=== PATIENT | male | born 1930 | race Two or more races ===

== ENCOUNTER 2017-08-21 13:23 | Inpatient (IN) | payer MEDICARE, MEDICAID ==
[~2017-08-21] VITALS: Ht 175.3 cm; Wt 65.8 kg
[2017-08-21 13:30] VITALS: BP 115/59
--- NOTE | 2017-08-21 13:44 | Emergency Room Report ---
History of Present Illness General Chief Complaint: General Complaint Source: Patient, Medical Record, EMS, PMD (Jm Andino M.D.) Present Illness HPI 87-year-old male, diabetes, CVA with left-sided hemiparesis, hypothyroidism, hypertension, history of atrial fibrillation, only on aspirin, on Plavix, presenting with abnormal labs. Patient is oriented to person only, states that he does not know why that he is here. Primary care doctor at noted that patient was dehydrated, hypernatremia, has not been eating for several days. (Jm Andino M.D.) Allergies: Coded Allergies: No Known Allergies (Unverified , 08/21/17) Patient History Past Medical History: see triage record Past Surgical History: none Pertinent Family History: none Reviewed Nursing Documentation: PMH: Agreed, PSxH: Agreed (Jm Andino M.D. ) Nursing Documentation-PMH Past Medical History: No History, Except For Hx Cardiac Problems: Yes - hypothyroidism, anemia, afib Hx Hypertension: Yes Hx Diabetes: Yes Hx Cerebrovascular Accident: Yes (Jm Andino M.D.) Review of Systems All Other Systems: limited - confused (Jm Andino M.D.) Physical Exam Vital Signs Date Time Temp Pulse Resp B/P (MAP) Pulse Ox O2 Delivery O2 Flow Rate FiO2 08/21/17 13:22 96.8 76 18 115/59 97 Room Air Sp02 EP Interpretation: reviewed, normal General Appearance: other - thin elderly male, confused, appears angry, not in pain, Chronically Ill Head: normocephalic, atraumatic Eyes: bilateral eye normal inspection, bilateral eye PERRL, bilateral eye EOMI ENT: normal ENT inspection, normal pharynx, normal voice, moist mucus membranes Neck: normal inspection, full range of motion, supple Respiratory: normal inspection, lungs clear, normal breath sounds, no respiratory distress, no retraction, no wheezing, speaking full sentences, chest symmetrical Cardiovascular #1: normal inspection, regular rate, rhythm, normal capillary refill Cardiovascular #2: 2+ radial (R), 2+ radial (L) Gastrointestinal: normal inspection, non tender, soft, non-distended, no guarding Musculoskeletal: other - normal passive ROM, L sided hemiparesis Neurologic: other - +L sided hemiparesis Psychiatric: other - dementia Skin: normal inspection, normal color, no rash, warm/dry, well hydrated, normal turgor (Jm Andino M.D.) Medical Decision Making Diagnostic Impression: Primary Impression: Failure to thrive Additional Impressions: Dehydration Hypernatremia Renal failure Elevated troponin I level ER Course 87-year-old male, coming from [facility], dehydrated DDX: Dehydration, electrolyte disturbance, UTI, pneumonia Plan: Obtain labs, ua, EKG, CXR IV fluids ER course: Patient has been monitored during ED stay, HD stable Disposition: Patient is to be admitted to med surg D/W hospitalist Dr Suh Please note that this Emergency Department Report was dictated using [employer] assistant technology software, occasionally this can lead to erroneous entry secondary to interpretation by the dictation equipment. EKG Diagnostic Results EP Interpretation: Yes Rate: normal Rhythm: NSR ST Segments: PVCs, T wave flattening inferior leads ASA given to patient: No Rhythm Strip EP Interpretation: Yes Rate: 75 Rhythm: NSR, no PVCs, no ectopy Chest X-ray CXR: Ordered: Yes 1 view Indication: Altered mental status EP interpretation: Yes Interpretation: No consolidation, no effusion, no PTX, no acute cardiopulmonary disease Impression: No acute disease Electronically signed by Jm Andino MD Laboratory Tests Test 08/21/17 13:27 08/21/17 13:45 White Blood Count 18.2 K/UL (4.8-10.8) H Red Blood Count 5.09 M/UL (4.70-6.10) Hemoglobin 15.7 G/DL (14.2-18.0) Hematocrit 48.0 % (42.0-52.0) Mean Corpuscular Volume 94 FL (80-99) Mean Corpuscular Hemoglobin 30.8 PG (27.0-31.0) Mean Corpuscular Hemoglobin Concent 32.7 G/DL (32.0-36.0) Red Cell Distribution Width 11.0 % (11.6-14.8) L Platelet Count 233 K/UL (150-450) Mean Platelet Volume 6.1 FL (6.5-10.1) L Neutrophils (%) (Auto) % (45.0-75.0) Lymphocytes (%) (Auto) % (20.0-45.0) Monocytes (%) (Auto) % (1.0-10.0) Eosinophils (%) (Auto) % (0.0-3.0) Basophils (%) (Auto) % (0.0-2.0) Differential Total Cells Counted 100 Neutrophils % (Manual) 87 % (45-75) H Lymphocytes % (Manual) 9 % (20-45) L Monocytes % (Manual) 4 % (1-10) Eosinophils % (Manual) 0 % (0-3) Basophils % (Manual) 0 % (0-2) Band Neutrophils 0 % (0-8) Platelet Estimate Adequate Platelet Morphology Normal Prothrombin Time 12.7 SEC (9.30-11.50) H Prothrombin Time INR 1.2 (0.9-1.1) H PTT 27 SEC (23-33) Sodium Level 151 MMOL/L (136-145) H Potassium Level 3.7 MMOL/L (3.5-5.1) Chloride Level 110 MMOL/L (98-107) H Carbon Dioxide Level 33 MMOL/L (21-32) H Anion Gap 8 mmol/L (5-15) Blood Urea Nitrogen 98 mg/dL (7-18) H Creatinine 2.5 MG/DL (0.55-1.30) H Estimate Glomerular Filtration Rate mL/min (>60) Glucose Level 411 MG/DL (74-106) H Lactic Acid Level 2.00 mmol/L (0.66-2.22) Calcium Level 10.0 MG/DL (8.5-10.1) Total Bilirubin 0.8 MG/DL (0.2-1.0) Aspartate Amino Transferase (AST) 39 U/L (15-37) H Alanine Aminotransferase (ALT) 41 U/L (12-78) Alkaline Phosphatase 114 U/L (46-116) Total Creatine Kinase 82 U/L (26-308) Pro-B-Type Natriuretic Peptide 2501 pg/mL (0-125) H Total Protein 8.8 G/DL (6.4-8.2) H Albumin 3.5 G/DL (3.4-5.0) Globulin 5.3 g/dL Albumin/Globulin Ratio 0.7 (1.0-2.7) L Troponin I 0.160 ng/mL (0.000-0.056) (Jm Andino M.D.) ER Course Informed by Rn that patient had trop .16 has renal failure so likely related Per Dr Andino's note, on ASA, Plavix as well Patient was upgraded to tele Dr Garcia was aware (DINESH DE LA ROSA M.D.) Last Vital Signs Date Time Temp Pulse Resp B/P (MAP) Pulse Ox O2 Delivery O2 Flow Rate FiO2 08/21/17 13:22 96.8 76 18 115/59 97 Room Air (Jm Andino M.D.) Status: improved (DINESH DE LA ROSA M.D.) Disposition: ADMITTED INPATIENT Condition: Serious Jm Andino M.D. Aug 21, 2017 13:43 DINESH DE LA ROSA M.D. Aug 21, 2017 16:15
[2017-08-21 14:01] LABS: MEAN CORPUSCULAR HEMOGLOBIN 30.8 PG (27.0-31.0); MEAN CORPUSCULAR HGB CONC 32.7 G/DL (32.0-36.0); MEAN CORPUSCULAR VOLUME 94 FL (80-99); MEAN PLATELET VOLUME 6.1 FL (6.5-10.1); PLATELET COUNT 233 K/UL (150-450); RED BLOOD COUNT 5.09 M/UL (4.70-6.10); WHITE BLOOD COUNT 18.2 K/UL (4.8-10.8)
[2017-08-21 14:12] LABS: ANION GAP 8 mmol/L (5-15); CARBON DIOXIDE 33 MMOL/L (21-32); CHLORIDE 110 MMOL/L (98-107); CREATININE 2.5 MG/DL (0.55-1.30); POTASSIUM 3.7 MMOL/L (3.5-5.1); SODIUM 151 MMOL/L (136-145)
[2017-08-21 14:15] LABS: INR 1.2 (0.9-1.1); PROTHROMBIN TIME 12.7 SEC (9.30-11.50)
[2017-08-21 14:24] LABS: REFLEX LACTIC ACID YES OR NO YES
[2017-08-21 14:28] LABS: ALANINE AMINOTRANSFERASE 41 U/L (12-78); ALBUMIN/GLOBULIN RATIO 0.7 (1.0-2.7); ASPARTATE AMINO TRANSFERASE 39 U/L (15-37); TOTAL PROTEIN 8.8 G/DL (6.4-8.2)
[2017-08-21] MEDS ORDERED: Vancomycin 1.5gm/D5W 250ml 250 ML IVPB ONE (14:30)
[2017-08-21] MEDS ORDERED: Cefepime HCl 2 GM in D5W 55 ML IVPB ONE (14:30)
[2017-08-21 14:46] LABS: BAND NEUTROPHILS % (MANUAL) 0 % (0-8); BASOPHILS % (MANUAL) 0 % (0-2); EOSINOPHILS % (MANUAL) 0 % (0-3); LYMPHOCYTES % (MANUAL) 9 % (20-45); NEUTROPHILS % (MANUAL) 87 % (45-75); PLATELET ESTIMATE ADEQUATE; PLATELET MORPHOLOGY NORMAL; TOTAL CELLS COUNTED 100
[2017-08-21] MEDS ORDERED: Cefepime 2gm ONE (14:51)
--- NOTE | 2017-08-21 14:52 | Consultation ---
Consult Note Consult Note asked to eval for renal failure 87-year-old male, diabetes, CVA with left-sided hemiparesis, hypothyroidism, hypertension, history of atrial fibrillation, only on aspirin, on Plavix, presenting with abnormal labs. Patient is oriented to person only, states that he does not know why that he is here. Primary care doctor at noted that patient was dehydrated, hypernatremia, has not been eating for several days. Past Medical History: No History, Except For Hx Cardiac Problems: Yes - hypothyroidism, anemia, afib Hx Hypertension: Yes Hx Diabetes: Yes Hx Cerebrovascular Accident: Yes examined- data reviewed Assessment/Plan Renal failure- dehydration- Hypernatremia FTT DM CVA with left weakness Low Thyroid HTN PAF PVD Plan: 1/2 SUSANA donnellyey- Urine studies- monitor renal parameters Keep BP and BS in check JOSE NORRIS Aug 21, 2017 14:52
[2017-08-21] MEDS ORDERED: LORazepam Inj 2mg/ml 1ml IV ONE (15:15)
[2017-08-21 16:03] LABS: APPEARANCE,URINE SLIGHTLY CLOUDY; KETONES,URINE NEGATIVE (NEGATIVE); LEUKOCYTE ESTERASE ,URINE 3+ (NEGATIVE); NITRITE,URINE NEGATIVE (NEGATIVE); PH,URINE 6 (4.5-8.0); PROTEIN,URINE 3+ (NEGATIVE); UROBILINOGEN,URINE NORMAL MG/DL (0.0-1.0)
[2017-08-21] MEDS ORDERED: LINZESS145 MCG PO (16:05)
[2017-08-21] MEDS ORDERED: NAMENDA10 MG ORAL (16:05)
[2017-08-21] MEDS ORDERED: ASPIRIN325 MG ORAL (16:05)
[2017-08-21] MEDS ORDERED: TRAMADOL HCL50 MG ORAL (16:05)
[2017-08-21] MEDS ORDERED: PLAVIX75 MG ORAL (16:05)
[2017-08-21] MEDS ORDERED: VITAMIN D1000 UNI1 ORAL (16:05)
[2017-08-21] MEDS ORDERED: ACETAMINOPHEN325 M1 ORAL (16:05)
[2017-08-21] MEDS ORDERED: GALANTAMINE4 MG/1 ML PO (16:05)
[2017-08-21] MEDS ORDERED: FUROSEMIDE40 MG ORAL (16:05)
[2017-08-21] MEDS ORDERED: CRANBERRY450 M3 PO (16:05)
[2017-08-21] MEDS ORDERED: MULTIVITAMINS1 EAC8 ORAL (16:05)
[2017-08-21] MEDS ORDERED: CARVEDILOL12.5 MG ORAL (16:05)
[2017-08-21] MEDS ORDERED: DOCUSATE SODIU100 MG ORAL (16:05)
[2017-08-21] MEDS ORDERED: MELATONIN3 MG ORAL (16:05)
[2017-08-21] MEDS ORDERED: LEVOTHYROXINE50 MCG ORAL (16:05)
[2017-08-21] MEDS ORDERED: CRESTOR10 M2 ORAL (16:05)
[2017-08-21 16:28] LABS: AMORPHOUS SEDIMENT,UR FEW /LPF; BACTERIA,URINE MODERATE /HPF; RBC,URINE 40-60 /HPF (0 - 0); WBC,URINE 30-40 /HPF (0 - 0)
[2017-08-21 16:30] VITALS: BP 106/60
--- NOTE | 2017-08-21 16:36 | Diagnostic Imaging Report ---
Indication: Shortness of breath Technique: One view of the chest Comparison: none Findings: No acute infiltrates, effusions, or congestion. Tortuous calcified aorta. Normal heart size. Upper mediastinum unremarkable. There are cholecystectomy clips. There are degenerative changes of the left shoulder Impression: No acute process.
[2017-08-21 18:00] VITALS: BP 108/62
--- NOTE | 2017-08-21 19:31 | Cardiology Progress Note ---
Assessment/Plan Assessment/Plan The patient is seen and examined, full consult note will be dictated. Objective Last 24 Hour Vital Signs Date Time Temp Pulse Resp B/P (MAP) Pulse Ox O2 Delivery O2 Flow Rate FiO2 08/21/17 18:00 97.7 72 18 108/62 94 Room Air 08/21/17 17:00 96.8 68 18 106/60 100 Room Air 08/21/17 16:30 68 18 106/60 100 Room Air 08/21/17 13:30 96.8 75 21 115/59 98 Room Air 08/21/17 13:22 96.8 76 18 115/59 97 Room Air Intake and Output 08/21/17 08/22/17 19:00 07:00 Intake Total 55 ml Balance 55 ml Intake Oral 0 ml IV Total 55 ml Laboratory Tests Test 08/21/17 13:27 08/21/17 13:45 08/21/17 14:23 08/21/17 15:34 White Blood Count 18.2 K/UL (4.8-10.8) H Red Blood Count 5.09 M/UL (4.70-6.10) Hemoglobin 15.7 G/DL (14.2-18.0) Hematocrit 48.0 % (42.0-52.0) Mean Corpuscular Volume 94 FL (80-99) Mean Corpuscular Hemoglobin 30.8 PG (27.0-31.0) Mean Corpuscular Hemoglobin Concent 32.7 G/DL (32.0-36.0) Red Cell Distribution Width 11.0 % (11.6-14.8) L Platelet Count 233 K/UL (150-450) Mean Platelet Volume 6.1 FL (6.5-10.1) L Neutrophils (%) (Auto) % (45.0-75.0) Lymphocytes (%) (Auto) % (20.0-45.0) Monocytes (%) (Auto) % (1.0-10.0) Eosinophils (%) (Auto) % (0.0-3.0) Basophils (%) (Auto) % (0.0-2.0) Differential Total Cells Counted 100 Neutrophils % (Manual) 87 % (45-75) H Lymphocytes % (Manual) 9 % (20-45) L Monocytes % (Manual) 4 % (1-10) Eosinophils % (Manual) 0 % (0-3) Basophils % (Manual) 0 % (0-2) Band Neutrophils 0 % (0-8) Platelet Estimate Adequate Platelet Morphology Normal Prothrombin Time 12.7 SEC (9.30-11.50) H Prothromb Time International Ratio 1.2 (0.9-1.1) H Activated Partial Thromboplast Time 27 SEC (23-33) Sodium Level 151 MMOL/L (136-145) H Potassium Level 3.7 MMOL/L (3.5-5.1) Chloride Level 110 MMOL/L (98-107) H Carbon Dioxide Level 33 MMOL/L (21-32) H Anion Gap 8 mmol/L (5-15) Blood Urea Nitrogen 98 mg/dL (7-18) H Creatinine 2.5 MG/DL (0.55-1.30) H Estimat Glomerular Filtration Rate mL/min (>60) Glucose Level 411 MG/DL (74-106) H Lactic Acid Level 2.00 mmol/L (0.66-2.22) 2.10 mmol/L (0.66-2.22) Calcium Level 10.0 MG/DL (8.5-10.1) Total Bilirubin 0.8 MG/DL (0.2-1.0) Aspartate Amino Transf (AST/SGOT) 39 U/L (15-37) H Alanine Aminotransferase (ALT/SGPT) 41 U/L (12-78) Alkaline Phosphatase 114 U/L (46-116) Total Creatine Kinase 82 U/L (26-308) Pro-B-Type Natriuretic Peptide 2501 pg/mL (0-125) H Total Protein 8.8 G/DL (6.4-8.2) H Albumin 3.5 G/DL (3.4-5.0) Globulin 5.3 g/dL Albumin/Globulin Ratio 0.7 (1.0-2.7) L Troponin I 0.160 ng/mL (0.000-0.056) Urine Color Pale yellow Urine Appearance Slightly cloudy Urine pH 6 (4.5-8.0) Urine Specific [place] 1.010 (1.005-1.035) Urine Protein 3+ (NEGATIVE) H Urine Glucose (UA) 1+ (NEGATIVE) H Urine Ketones Negative (NEGATIVE) Urine Occult Blood 5+ (NEGATIVE) H Urine Nitrite Negative (NEGATIVE) Urine Bilirubin Negative (NEGATIVE) Urine Urobilinogen Normal MG/DL (0.0-1.0) Urine Leukocyte Esterase 3+ (NEGATIVE) H Urine RBC 40-60 /HPF (0 - 0) H Urine WBC 30-40 /HPF (0 - 0) H Urine Squamous Epithelial Cells None /LPF (NONE/OCC) Urine Amorphous Sediment Few /LPF (NONE) H Urine Bacteria Moderate /HPF (NONE) H REBECCA SANCHEZ Aug 21, 2017 19:31
[2017-08-21 20:16] VITALS: BP 114/59
[2017-08-22 00:45] VITALS: BP 122/60
[2017-08-22 04:23] VITALS: BP 118/65
--- NOTE | 2017-08-22 08:15 | History and Physical Report ---
DATE OF ADMISSION: 08/21/2017 REASON FOR ADMISSION: Dehydration, acute renal failure, failure to thrive, UTI, rule out sepsis. HISTORY OF PRESENT ILLNESS: The patient is very weak. Unable to obtain any history, very poor historian. More confused than his baseline. He is admitted for failure to thrive, , acute renal failure, dehydration, borderline troponin elevation as well as UTI, rule out sepsis. PAST MEDICAL HISTORY: Hypertension, organic brain syndrome, constipation, hypothyroidism, dementia, hyperlipidemia, chronic pain syndrome, and GERD. MEDICATIONS: Levoxyl, Crestor, Ultram, , Colace, Plavix, , aspirin. ALLERGIES: No known allergies. SOCIAL HISTORY: Unable to obtain. . He comes from a correction. FAMILY HISTORY: Unable to obtain. REVIEW OF SYSTEMS: Very poor historian. More altered than usual. Has dementia and cannot obtain any further history from the patient. PHYSICAL EXAMINATION: VITAL SIGNS: Temperature 96.8 degrees, pulse is 75, and blood pressure 116/59. HEENT: PERRLA. NECK: Supple. No lymphadenopathy. CHEST: Clear to auscultation. GASTROINTESTINAL: Soft, nontender, and nondistended. No organomegaly. EXTREMITIES: No edema. Moves all four extremities. Has weight loss. NEUROLOGIC: Reflexes are equal on both sides. Oriented to name only. LABORATORY DATA: Labs showed WBC of 18.2, hemoglobin 15.7, and platelets 233,000. UA shows UTI. Sodium is 151, potassium 3.7, BUN 98, creatinine 3.5, and glucose of 411. Troponin is 8.16. ASSESSMENT AND PLAN: 1. Elevated troponin, could be most likely due to acute renal failure. 2. Hyperlipidemia. 3. Acute renal failure, most likely due to dehydration. The patient is fluids. The patient also has elevated blood sugar and elevated WBC. Rule out sepsis. The patient apparently has a urinary tract infection. 4. I have asked , Dr. Lee, and Dr. Dinora Grimaldo to see the patient for the above-mentioned diagnoses and treatment. Pranav Le M.D. DR: Aileen JOB#: [id number] CC:
[2017-08-22 08:29] VITALS: BP 137/69
[2017-08-22 08:43] LABS: MEAN CORPUSCULAR HEMOGLOBIN 31.3 PG (27.0-31.0); MEAN CORPUSCULAR HGB CONC 33.7 G/DL (32.0-36.0); MEAN CORPUSCULAR VOLUME 93 FL (80-99); MEAN PLATELET VOLUME 6.1 FL (6.5-10.1); PLATELET COUNT 208 K/UL (150-450); RED BLOOD COUNT 4.65 M/UL (4.70-6.10); RED CELL DISTRIBUTION WIDTH 11.1 % (11.6-14.8); WHITE BLOOD COUNT 18.2 K/UL (4.8-10.8)
[2017-08-22 09:35] LABS: ALANINE AMINOTRANSFERASE 32 U/L (12-78); ALBUMIN/GLOBULIN RATIO 0.7 (1.0-2.7); ANION GAP 7 mmol/L (5-15); ASPARTATE AMINO TRANSFERASE 29 U/L (15-37); CALCIUM 9.3 MG/DL (8.5-10.1); CARBON DIOXIDE 33 MMOL/L (21-32); CHLORIDE 113 MMOL/L (98-107); CHOLESTEROL 71 MG/DL (< 200); CHOLESTEROL/HDL RATIO 1.9 (3.3-4.4); MAGNESIUM 2.7 MG/DL (1.8-2.4); PHOSPHORUS 2.7 MG/DL (2.5-4.9); POTASSIUM 3.1 MMOL/L (3.5-5.1); SODIUM 153 MMOL/L (136-145); THYROID STIMULATING HORMONE 1.004 uiU/mL (0.358-3.740); TOTAL PROTEIN 8.1 G/DL (6.4-8.2); URIC ACID 13.1 MG/DL (2.6-7.2)
[2017-08-22 10:29] LABS: HEMOGLOBIN A1C 7.9 % (4.3-6.0)
[2017-08-22 10:37] LABS: BAND NEUTROPHILS % (MANUAL) 0 % (0-8); BASOPHILS % (MANUAL) 0 % (0-2); EOSINOPHILS % (MANUAL) 1 % (0-3); LYMPHOCYTES % (MANUAL) 5 % (20-45); NEUTROPHILS % (MANUAL) 88 % (45-75); PLATELET ESTIMATE ADEQUATE; PLATELET MORPHOLOGY NORMAL; TOTAL CELLS COUNTED 100
[2017-08-22 11:28] LABS: FOLIC ACID 31.2 NG/ML (8.6-58.9)
[2017-08-22 11:38] VITALS: BP 118/61
--- NOTE | 2017-08-22 12:27 | Diagnostic Imaging Report ---
APPROVED REPORT CPT Code: 62929 Present Symptoms Comments: Technically difficult study due to pain BILATERAL: Imaging reveals a patent deep venous system bilaterally. There is no evidence of thrombus within the femoral, popliteal or tibial segments. The greater saphenous veins are also within normal limits. Doppler indicates normal spontaneous flow within these segments.
--- NOTE | 2017-08-22 13:07 | Nephrology Progress Note ---
Assessment/Plan Assessment Renal failure- cr lower dehydration- Hypernatremia FTT DM CVA with left weakness Low Thyroid HTN PAF PVD Plan Plan: /2 NS has condom cath Urine studies- monitor renal parameters Keep BP and BS in check Subjective ROS Limited/Unobtainable: No Constitutional: Reports: malaise, weakness Objective Objective Last 24 Hour Vital Signs Date Time Temp Pulse Resp B/P (MAP) Pulse Ox O2 Delivery O2 Flow Rate FiO2 08/22/17 11:38 97.5 72 20 118/61 95 08/22/17 11:16 78 08/22/17 08:29 97.3 70 20 137/69 96 08/22/17 08:00 74 08/22/17 04:23 96.2 90 18 118/65 94 Room Air 08/22/17 04:00 69 08/22/17 00:45 96.8 74 18 122/60 96 Room Air 08/22/17 00:00 78 08/21/17 20:16 97.1 71 18 114/59 96 Room Air 08/21/17 20:00 75 08/21/17 18:00 97.7 72 18 108/62 94 Room Air 08/21/17 17:00 96.8 68 18 106/60 100 Room Air 08/21/17 16:30 68 18 106/60 100 Room Air 08/21/17 13:30 96.8 75 21 115/59 98 Room Air 08/21/17 13:22 96.8 76 18 115/59 97 Room Air Laboratory Tests 08/21/17 13:27: White Blood Count 18.2H, Red Blood Count 5.09, Hemoglobin 15.7, Hematocrit 48.0 , Mean Corpuscular Volume 94, Mean Corpuscular Hemoglobin 30.8, Mean Corpuscular Hemoglobin Concent 32.7, Red Cell Distribution Width 11.0L, Platelet Count 233, Mean Platelet Volume 6.1L, Neutrophils (%) (Auto) , Lymphocytes (%) (Auto) , Monocytes (%) (Auto) , Eosinophils (%) (Auto) , Basophils (%) (Auto) , Differential Total Cells Counted 100, Neutrophils % ( Manual) 87H, Lymphocytes % (Manual) 9L, Monocytes % (Manual) 4, Eosinophils % ( Manual) 0, Basophils % (Manual) 0, Band Neutrophils 0, Platelet Estimate Adequate, Platelet Morphology Normal, Prothrombin Time 12.7H, Prothromb Time International Ratio 1.2H, Activated Partial Thromboplast Time 27, Sodium Level 151H, Potassium Level 3.7, Chloride Level 110H, Carbon Dioxide Level 33H, Anion Gap 8, Blood Urea Nitrogen 98H, Creatinine 2.5H, Estimat Glomerular Filtration Rate , Glucose Level 411H, Lactic Acid Level 2.00, Calcium Level 10.0, Total Bilirubin 0.8, Aspartate Amino Transf (AST/SGOT) 39H, Alanine Aminotransferase ( ALT/SGPT) 41, Alkaline Phosphatase 114, Total Creatine Kinase 82, Pro-B-Type Natriuretic Peptide 2501H, Total Protein 8.8H, Albumin 3.5, Globulin 5.3, Albumin/Globulin Ratio 0.7L 08/21/17 13:45: Troponin I 0.160H 08/21/17 14:23: Lactic Acid Level 2.10 08/21/17 15:34: Urine Color Pale yellow, Urine Appearance Slightly cloudy, Urine pH 6, Urine Specific [place] 1.010, Urine Protein 3+H, Urine Glucose (UA) 1+H, Urine Ketones Negative, Urine Occult Blood 5+H, Urine Nitrite Negative, Urine Bilirubin Negative, Urine Urobilinogen Normal, Urine Leukocyte Esterase 3+H, Urine RBC 40-60H, Urine WBC 30-40H, Urine Squamous Epithelial Cells None, Urine Amorphous Sediment FewH, Urine Bacteria ModerateH 08/22/17 08:05: White Blood Count 18.2H, Red Blood Count 4.65L, Hemoglobin 14.6, Hematocrit 43.2 , Mean Corpuscular Volume 93, Mean Corpuscular Hemoglobin 31.3H, Mean Corpuscular Hemoglobin Concent 33.7, Red Cell Distribution Width 11.1L, Platelet Count 208, Mean Platelet Volume 6.1L, Neutrophils (%) (Auto) , Lymphocytes (%) (Auto) , Monocytes (%) (Auto) , Eosinophils (%) (Auto) , Basophils (%) (Auto) , Differential Total Cells Counted 100, Neutrophils % ( Manual) 88H, Lymphocytes % (Manual) 5L, Monocytes % (Manual) 6, Eosinophils % ( Manual) 1, Basophils % (Manual) 0, Band Neutrophils 0, Platelet Estimate Adequate, Platelet Morphology Normal, Red Blood Cell Morphology Normal, Sodium Level 153H, Potassium Level 3.1L, Chloride Level 113H, Carbon Dioxide Level 33H , Anion Gap 7, Blood Urea Nitrogen 77H, Creatinine 2.0H, Estimat Glomerular Filtration Rate , Glucose Level 191#H, Hemoglobin A1c 7.9H, Uric Acid 13.1H, Calcium Level 9.3, Phosphorus Level 2.7, Magnesium Level 2.7H, Total Bilirubin 0.9, Gamma Glutamyl Transpeptidase 39, Aspartate Amino Transf (AST/SGOT) 29, Alanine Aminotransferase (ALT/SGPT) 32, Alkaline Phosphatase 105, Total Creatine Kinase 113, Troponin I 0.163H, C-Reactive Protein, Quantitative 10.0H, Pro-B-Type Natriuretic Peptide 3190H, Total Protein 8.1, Albumin 3.2L, Globulin 4.9, Albumin/Globulin Ratio 0.7L, Triglycerides Level 67, Cholesterol Level 71, LDL Cholesterol 28, HDL Cholesterol 37L, Cholesterol/HDL Ratio 1.9L, Vitamin B12 Level 1789H, Folate 31.2, Thyroid Stimulating Hormone (TSH) 1.004 Height (Feet): 5 Height (Inches): 9.00 Weight (Pounds): 145 General Appearance: no apparent distress Cardiovascular: normal rate, arrhythmia Respiratory/Chest: decreased breath sounds Abdomen: soft Objective no change JOSE NORRIS Aug 22, 2017 13:07
--- NOTE | 2017-08-22 14:27 | Cardiology Report ---
APPROVED REPORT EKG Measurement Heart [id number] ND 250P14 [id number] Sinus rhythm with 1st degree AV block with occasional premature ventricular complexes Moderate voltage criteria for LVH, may be normal variant T wave abnormality, consider inferior ischemia Abnormal ECG
[2017-08-22] MEDS ORDERED: cefTRIAXone 1 GM in D5W 55 ML IVPB SCH (15:00)
--- NOTE | 2017-08-22 15:45 | Consultation ---
DATE OF CONSULTATION: 08/22/2017 INFECTIOUS DISEASE CONSULTATION CONSULTING PHYSICIAN: Henry Lemons M.D. PRIMARY ATTENDING PHYSICIAN: Pranav Le M.D. REASON FOR CONSULTATION: UTI. HISTORY OF PRESENT ILLNESS: This is an 87-year-old male, who is a care home resident, admitted yesterday with decreased p.o. intake. It was found the patient had hypernatremia and acute renal failure. The patient also had leukocytosis, pyuria, and hematuria. He is demented and not a source of history. PAST MEDICAL HISTORY: Significant for CVA with left-sided hemiplegia, hypothyroidism, hypertension, dementia, and had history of atrial fibrillation in the past. ALLERGIES: No known drug allergies. MEDICATIONS: Rocephin, promethazine, and sodium chloride. He had a dose of vancomycin and cefepime in the ER. SOCIAL HISTORY: [facility] resident. . Code status is DNR. No history of alcohol, drug abuse, or smoking. REVIEW OF SYSTEMS: Unobtainable. PHYSICAL EXAMINATION: GENERAL APPEARANCE: The patient seems to be thin but is friendly and shakes hand. VITAL SIGNS: Temperature 97.3, pulse 70, blood pressure 137/69, and was afebrile. HEAD AND NECK: [place] conjunctivae. HEART: Normal rate. LUNGS: Clear. ABDOMEN: Soft, nondistended, nontender. EXTREMITIES: No edema. He has bilateral lower extremity muscle atrophy. SKIN: He has pigmented skin lesion in the left chandra. NEUROLOGIC: He is awake, alert, verbal, and cannot move left side of the body. LABORATORY AND DIAGNOSTIC DATA: WBC 18.2, hemoglobin 13.6 . Sodium 151, potassium 3.7, chloride 110, bicarbonate 33, BUN 98, creatinine 2.5. This morning, BUN 77 and creatinine 2. He had elevated troponin 0.163. Chest x-ray showed no acute process. Venous duplex, no DVT. UA showed WBC of 30-40, RBC of 40-60. Urine culture is pending. IMPRESSION: Urinary tract infection. The patient seems to have leukocytosis and pyuria. It seems the patient has acute renal failure, has diabetes mellitus, hypernatremia, hypertension, and dementia. RECOMMENDATION: We will continue with Rocephin. We will follow up with culture. At the end of my exam, I thank Dr. Le for involving me in the care of this patient. Henry Lemons M.D. DR: Manuel JOB#: [id number] CC: S[place]
--- NOTE | 2017-08-22 15:46 | Cardiology Progress Note ---
Assessment/Plan Assessment/Plan The patient is seen and examined, full consult note will be dictated. Objective Last 24 Hour Vital Signs Date Time Temp Pulse Resp B/P (MAP) Pulse Ox O2 Delivery O2 Flow Rate FiO2 08/22/17 15:06 75 08/22/17 11:38 97.5 72 20 118/61 95 08/22/17 11:16 78 08/22/17 08:29 97.3 70 20 137/69 96 08/22/17 08:00 74 08/22/17 04:23 96.2 90 18 118/65 94 Room Air 08/22/17 04:00 69 08/22/17 00:45 96.8 74 18 122/60 96 Room Air 08/22/17 00:00 78 08/21/17 20:16 97.1 71 18 114/59 96 Room Air 08/21/17 20:00 75 08/21/17 18:00 97.7 72 18 108/62 94 Room Air 08/21/17 17:00 96.8 68 18 106/60 100 Room Air 08/21/17 16:30 68 18 106/60 100 Room Air Intake and Output 08/22/17 08/23/17 19:00 07:00 Intake Total 655 ml Balance 655 ml IV Total 655 ml Laboratory Tests Test 08/22/17 08:05 White Blood Count 18.2 K/UL (4.8-10.8) H Red Blood Count 4.65 M/UL (4.70-6.10) L Hemoglobin 14.6 G/DL (14.2-18.0) Hematocrit 43.2 % (42.0-52.0) Mean Corpuscular Volume 93 FL (80-99) Mean Corpuscular Hemoglobin 31.3 PG (27.0-31.0) H Mean Corpuscular Hemoglobin Concent 33.7 G/DL (32.0-36.0) Red Cell Distribution Width 11.1 % (11.6-14.8) L Platelet Count 208 K/UL (150-450) Mean Platelet Volume 6.1 FL (6.5-10.1) L Neutrophils (%) (Auto) % (45.0-75.0) Lymphocytes (%) (Auto) % (20.0-45.0) Monocytes (%) (Auto) % (1.0-10.0) Eosinophils (%) (Auto) % (0.0-3.0) Basophils (%) (Auto) % (0.0-2.0) Differential Total Cells Counted 100 Neutrophils % (Manual) 88 % (45-75) H Lymphocytes % (Manual) 5 % (20-45) L Monocytes % (Manual) 6 % (1-10) Eosinophils % (Manual) 1 % (0-3) Basophils % (Manual) 0 % (0-2) Band Neutrophils 0 % (0-8) Platelet Estimate Adequate Platelet Morphology Normal Red Blood Cell Morphology Normal Sodium Level 153 MMOL/L (136-145) H Potassium Level 3.1 MMOL/L (3.5-5.1) L Chloride Level 113 MMOL/L (98-107) H Carbon Dioxide Level 33 MMOL/L (21-32) H Anion Gap 7 mmol/L (5-15) Blood Urea Nitrogen 77 mg/dL (7-18) H Creatinine 2.0 MG/DL (0.55-1.30) H Estimat Glomerular Filtration Rate mL/min (>60) Glucose Level 191 MG/DL (74-106) #H Hemoglobin A1c 7.9 % (4.3-6.0) H Uric Acid 13.1 MG/DL (2.6-7.2) H Calcium Level 9.3 MG/DL (8.5-10.1) Phosphorus Level 2.7 MG/DL (2.5-4.9) Magnesium Level 2.7 MG/DL (1.8-2.4) H Total Bilirubin 0.9 MG/DL (0.2-1.0) Gamma Glutamyl Transpeptidase 39 U/L (5-85) Aspartate Amino Transf (AST/SGOT) 29 U/L (15-37) Alanine Aminotransferase (ALT/SGPT) 32 U/L (12-78) Alkaline Phosphatase 105 U/L (46-116) Total Creatine Kinase 113 U/L (26-308) Troponin I 0.163 ng/mL (0.000-0.056) C-Reactive Protein, Quantitative 10.0 mg/dL (0.00-0.90) H Pro-B-Type Natriuretic Peptide 3190 pg/mL (0-125) H Total Protein 8.1 G/DL (6.4-8.2) Albumin 3.2 G/DL (3.4-5.0) L Globulin 4.9 g/dL Albumin/Globulin Ratio 0.7 (1.0-2.7) L Triglycerides Level 67 MG/DL (30-150) Cholesterol Level 71 MG/DL (< 200) LDL Cholesterol 28 mg/dL (<100) HDL Cholesterol 37 MG/DL (40-60) L Cholesterol/HDL Ratio 1.9 (3.3-4.4) L Vitamin B12 Level 1789 PG/ML (193-986) H Folate 31.2 NG/ML (8.6-58.9) Thyroid Stimulating Hormone (TSH) 1.004 uiU/mL (0.358-3.740) Microbiology Date/Time Source Procedure Growth Status 08/21/17 15:34 Urine,Clean Catch Urine Culture - Preliminary Resulted REBECCA SANCHEZ Aug 22, 2017 15:46
[2017-08-22 16:02] VITALS: BP 123/50
--- NOTE | 2017-08-22 18:15 | Consultation ---
DATE OF CONSULTATION: 08/21/2017 CARDIOLOGY CONSULTATION REFERRING PHYSICIAN: Pranav Le M.D. REASON FOR CONSULTATION: Management of elevated troponin level. HISTORY OF PRESENT ILLNESS: The patient is a very unfortunate 87-year-old gentleman, who is transferred from nursing facility for abnormal labs. At the time of evaluation by the emergency department physician, the patient was found to be only oriented to person. The patient was found to be dehydrated, serum sodium level was elevated due to the fact that the patient has not been eating for several days. The patient was admitted to telemetry for further evaluation and management. Cardiology consultation was made at the request of Dr. Le for management of atrial fibrillation as well as elevation of troponin I level. The patient is not capable of providing any verbal communication at this time. Review of the record shows that the patient has many risk factors for coronary artery disease including hypertension and diabetes mellitus. The patient also has history of cerebrovascular accident in the past. PAST MEDICAL HISTORY: 1. Diabetes mellitus. 2. Hypertension. 3. Cerebrovascular accident. 4. Hypothyroidism. 5. Anemia. 6. Atrial fibrillation. 7. Failure to thrive. PAST SURGICAL HISTORY: None. MEDICATIONS: List of the medications from [facility] includin. Acetaminophen 650 mg q.6 h. for headache and temperature above 101 degrees. 2. Aspirin 325 mg p.o. daily. 3. Carvedilol 12.5 mg twice daily. 4. Vitamin D 2000 units daily. 5. Plavix 75 mg p.o. daily. 6. Cranberry 450 mg p.o. daily. 7. Colace 100 mg p.o. three times daily. 8. Lasix 40 mg p.o. daily. 9. Galantamine hydrobromide 4 mg p.o. twice daily. 10. Levothyroxine 50 mcg p.o. daily. 11. Linzess 145 mcg p.o. daily. 12. Melatonin 9 mg p.o. nightly. 13. Namenda 10 mg p.o. twice daily. 14. Multivitamin one tablet p.o. daily. 15. Crestor 5 mg p.o. daily. 16. Tramadol 50 mg p.o. q.12 h. p.r.n. pain. ALLERGIES: No known drug allergies. SOCIAL HISTORY: No history of tobacco, alcohol, or illicit drug use. FAMILY HISTORY: No premature coronary artery disease in first-degree relative. REVIEW OF SYSTEMS: A 12-system review cannot be obtained as the patient is not verbally communicating. PHYSICAL EXAMINATION: VITAL SIGNS: Blood pressure was 115/59, pulse of 76, respirations of 18, temperature 96.8 degrees Fahrenheit, and O2 saturation of 97% on room air. GENERAL: The patient is a very unfortunate 87-year-old gentleman, in no apparent respiratory distress, appears to be confused, thin and frail, chronically ill looking. HEENT: Atraumatic and normocephalic. Anicteric. There is bitemporal wasting. Pupils are equal, round, and reactive to light and accommodation. Conjunctival pallor is evident. NECK: JVP less than 5 cm. No carotid bruit. Carotid upstroke is 2+ bilaterally. CVS: Normal S1 and S2. Regular rate and rhythm. No murmurs, gallops, or rubs. PMI is at fourth intercostal space in the midclavicular line. LUNGS: Clear to auscultation bilaterally. ABDOMEN: Soft, nontender, and nondistended. No hepatosplenomegaly. Positive bowel sounds. EXTREMITIES: No evidence of edema, clubbing, or cyanosis. There is left-sided hemiparesis. LABORATORY FINDINGS: WBC is 18.2, hemoglobin of 15.7, hematocrit of 48.0, and platelet count is 233,000. Sodium is 151, potassium is 3.7, chloride 110, carbon dioxide of 33, BUN of 98, creatinine 2.5, glucose is 411, and calcium is 10.0. ProBNP was 2501. Troponin I was 0.16. A 12-lead electrocardiogram shows sinus rhythm with T-wave flattening in inferior leads. Heart rate of 75. ASSESSMENT AND PLAN: The patient is a very unfortunate 87-year-old gentleman, seen in Cardiology consultation at the request of Dr. Le. 1. Slight elevation of troponin I level in this patient could be secondary to his underlying acute renal failure, sepsis, or tachycardia. 2. The patient did not have any complaint of chest pain at the time of arrival to the hospital. We will obtain the serial troponin I levels to figure the pattern of troponin rise. 3. A 12-lead electrocardiogram does not show any evidence of ischemia at this time. In view of the patient's comorbidity, lack of chest pain, conservative therapy would be the mainstay of therapy in this patient. We will obtain fasting lipid panel for coronary artery disease risk stratification. 2D echocardiography will be ordered to assess left ventricular systolic and diastolic function. 4. Paroxysmal atrial fibrillation, currently appears to be in sinus rhythm. Review of the medical record shows that the patient is on combination of aspirin and clopidogrel and not on any anticoagulation therapy. We will discuss with primary to ensure that the patient has shown prior episode of atrial fibrillation. In that case, combination of aspirin and Plavix ideally be altered to aspirin and one of the novel oral anticoagulants. 5. History of cerebrovascular accident. Currently, on aspirin and Plavix for secondary preventive measures. This is an adequate treatment. 6. Acute kidney injury on hydration. 7. History of hypernatremia signifying free water deficit. Nephrology business systems consultant is managing this condition. I would like to thank, Dr. Le, for the courtesy of this consultation. Gio Borges M.D. DR: Morgan JOB#: [id number] CC:
[2017-08-22] MEDS ORDERED: Tubing IV Secondary IV ONE (18:41)
[2017-08-22] MEDS ORDERED: 1/2 NS 1000ml IV ONE (18:41)
--- NOTE | 2017-08-22 18:59 | Cardiology Progress Note ---
Assessment/Plan Assessment/Plan 1. Slight elevation of troponin I level in this patient could be secondary to his underlying acute renal failure, sepsis, or tachycardia. No complains about chest pain, no ischemic features on the ECG, continue conservative therapy. 2. Paroxysmal atrial fibrillation, currently appears to be in sinus rhythm, consider NOAC. 3. Hx of CVA, continue ASA and plavix if NOAC is not considered. Subjective Subjective Sinus rhythm at 74. Not verbally communicating. Objective Last 24 Hour Vital Signs Date Time Temp Pulse Resp B/P (MAP) Pulse Ox O2 Delivery O2 Flow Rate FiO2 08/22/17 16:02 97.7 81 18 123/50 95 08/22/17 15:06 75 08/22/17 11:38 97.5 72 20 118/61 95 08/22/17 11:16 78 08/22/17 08:29 97.3 70 20 137/69 96 08/22/17 08:00 74 08/22/17 04:23 96.2 90 18 118/65 94 Room Air 08/22/17 04:00 69 08/22/17 00:45 96.8 74 18 122/60 96 Room Air 08/22/17 00:00 78 08/21/17 20:16 97.1 71 18 114/59 96 Room Air 08/21/17 20:00 75 Neck: spinous processes tender Intake and Output 08/22/17 08/23/17 19:00 07:00 Intake Total 805 ml Output Total 300 ml Balance 505 ml IV Total 805 ml Output Urine Total 300 ml # Voids 1 Laboratory Tests Test 08/22/17 08:05 White Blood Count 18.2 K/UL (4.8-10.8) H Red Blood Count 4.65 M/UL (4.70-6.10) L Hemoglobin 14.6 G/DL (14.2-18.0) Hematocrit 43.2 % (42.0-52.0) Mean Corpuscular Volume 93 FL (80-99) Mean Corpuscular Hemoglobin 31.3 PG (27.0-31.0) H Mean Corpuscular Hemoglobin Concent 33.7 G/DL (32.0-36.0) Red Cell Distribution Width 11.1 % (11.6-14.8) L Platelet Count 208 K/UL (150-450) Mean Platelet Volume 6.1 FL (6.5-10.1) L Neutrophils (%) (Auto) % (45.0-75.0) Lymphocytes (%) (Auto) % (20.0-45.0) Monocytes (%) (Auto) % (1.0-10.0) Eosinophils (%) (Auto) % (0.0-3.0) Basophils (%) (Auto) % (0.0-2.0) Differential Total Cells Counted 100 Neutrophils % (Manual) 88 % (45-75) H Lymphocytes % (Manual) 5 % (20-45) L Monocytes % (Manual) 6 % (1-10) Eosinophils % (Manual) 1 % (0-3) Basophils % (Manual) 0 % (0-2) Band Neutrophils 0 % (0-8) Platelet Estimate Adequate Platelet Morphology Normal Red Blood Cell Morphology Normal Sodium Level 153 MMOL/L (136-145) H Potassium Level 3.1 MMOL/L (3.5-5.1) L Chloride Level 113 MMOL/L (98-107) H Carbon Dioxide Level 33 MMOL/L (21-32) H Anion Gap 7 mmol/L (5-15) Blood Urea Nitrogen 77 mg/dL (7-18) H Creatinine 2.0 MG/DL (0.55-1.30) H Estimat Glomerular Filtration Rate mL/min (>60) Glucose Level 191 MG/DL (74-106) #H Hemoglobin A1c 7.9 % (4.3-6.0) H Uric Acid 13.1 MG/DL (2.6-7.2) H Calcium Level 9.3 MG/DL (8.5-10.1) Phosphorus Level 2.7 MG/DL (2.5-4.9) Magnesium Level 2.7 MG/DL (1.8-2.4) H Total Bilirubin 0.9 MG/DL (0.2-1.0) Gamma Glutamyl Transpeptidase 39 U/L (5-85) Aspartate Amino Transf (AST/SGOT) 29 U/L (15-37) Alanine Aminotransferase (ALT/SGPT) 32 U/L (12-78) Alkaline Phosphatase 105 U/L (46-116) Total Creatine Kinase 113 U/L (26-308) Troponin I 0.163 ng/mL (0.000-0.056) C-Reactive Protein, Quantitative 10.0 mg/dL (0.00-0.90) H Pro-B-Type Natriuretic Peptide 3190 pg/mL (0-125) H Total Protein 8.1 G/DL (6.4-8.2) Albumin 3.2 G/DL (3.4-5.0) L Globulin 4.9 g/dL Albumin/Globulin Ratio 0.7 (1.0-2.7) L Triglycerides Level 67 MG/DL (30-150) Cholesterol Level 71 MG/DL (< 200) LDL Cholesterol 28 mg/dL (<100) HDL Cholesterol 37 MG/DL (40-60) L Cholesterol/HDL Ratio 1.9 (3.3-4.4) L Vitamin B12 Level 1789 PG/ML (193-986) H Folate 31.2 NG/ML (8.6-58.9) Thyroid Stimulating Hormone (TSH) 1.004 uiU/mL (0.358-3.740) Microbiology Date/Time Source Procedure Growth Status 08/21/17 15:34 Urine,Clean Catch Urine Culture - Preliminary Resulted Objective HEENT: Atraumatic and normocephalic. Anicteric. There is bitemporal wasting. Pupils are equal, round, and reactive to light and accommodation. Conjunctival pallor is evident. NECK: JVP less than 5 cm. No carotid bruit. Carotid upstroke is 2+ bilaterally. CVS: Normal S1 and S2. Regular rate and rhythm. No murmurs, gallops, or rubs. PMI is at fourth intercostal space in the midclavicular line. LUNGS: Clear to auscultation bilaterally. ABDOMEN: Soft, nontender, and nondistended. No hepatosplenomegaly. Positive bowel sounds. EXTREMITIES: No evidence of edema, clubbing, or cyanosis. There is left-sided hemiparesis. REBECCA SANCHEZ Aug 22, 2017 18:59
[2017-08-22 20:03] VITALS: BP 120/57
[2017-08-22] MEDS ORDERED: Tamsulosin 0.4mg cap ORAL SCH (21:00)
--- NOTE | 2017-08-22 21:18 | General Progress Note ---
Assessment/Plan Problem List: (1) Failure to thrive SNOMED: 96794050 (2) Hypernatremia ICD Codes: E87.0 - Hyperosmolality and hypernatremia SNOMED: 83382023 (3) Renal failure ICD Codes: N19 - Unspecified kidney failure SNOMED: 58514443 (4) Dehydration ICD Codes: E86.0 - Dehydration SNOMED: 04634498 (5) Elevated troponin I level ICD Codes: R74.8 - Abnormal levels of other serum enzymes SNOMED: 336962975 Status: progressing Assessment/Plan afebrile arf ftt sepsis and uti abx per id reviewed chart and labs Subjective ROS Limited/Unobtainable: Yes Allergies: Coded Allergies: No Known Allergies (Unverified , 08/21/17) Objective Last 24 Hour Vital Signs Date Time Temp Pulse Resp B/P (MAP) Pulse Ox O2 Delivery O2 Flow Rate FiO2 08/22/17 20:03 97.7 73 18 120/57 97 Room Air 08/22/17 16:02 97.7 81 18 123/50 95 08/22/17 15:06 75 08/22/17 11:38 97.5 72 20 118/61 95 08/22/17 11:16 78 08/22/17 08:29 97.3 70 20 137/69 96 08/22/17 08:00 74 08/22/17 04:23 96.2 90 18 118/65 94 Room Air 08/22/17 04:00 69 08/22/17 00:45 96.8 74 18 122/60 96 Room Air 08/22/17 00:00 78 Intake and Output 08/22/17 08/23/17 19:00 07:00 Intake Total 880 ml Output Total 300 ml Balance 580 ml IV Total 880 ml Output Urine Total 300 ml # Voids 1 Laboratory Tests 08/22/17 08:05: White Blood Count 18.2H, Red Blood Count 4.65L, Hemoglobin 14.6, Hematocrit 43.2 , Mean Corpuscular Volume 93, Mean Corpuscular Hemoglobin 31.3H, Mean Corpuscular Hemoglobin Concent 33.7, Red Cell Distribution Width 11.1L, Platelet Count 208, Mean Platelet Volume 6.1L, Neutrophils (%) (Auto) , Lymphocytes (%) (Auto) , Monocytes (%) (Auto) , Eosinophils (%) (Auto) , Basophils (%) (Auto) , Differential Total Cells Counted 100, Neutrophils % ( Manual) 88H, Lymphocytes % (Manual) 5L, Monocytes % (Manual) 6, Eosinophils % ( Manual) 1, Basophils % (Manual) 0, Band Neutrophils 0, Platelet Estimate Adequate, Platelet Morphology Normal, Red Blood Cell Morphology Normal, Sodium Level 153H, Potassium Level 3.1L, Chloride Level 113H, Carbon Dioxide Level 33H , Anion Gap 7, Blood Urea Nitrogen 77H, Creatinine 2.0H, Estimat Glomerular Filtration Rate , Glucose Level 191#H, Hemoglobin A1c 7.9H, Uric Acid 13.1H, Calcium Level 9.3, Phosphorus Level 2.7, Magnesium Level 2.7H, Total Bilirubin 0.9, Gamma Glutamyl Transpeptidase 39, Aspartate Amino Transf (AST/SGOT) 29, Alanine Aminotransferase (ALT/SGPT) 32, Alkaline Phosphatase 105, Total Creatine Kinase 113, Troponin I 0.163H, C-Reactive Protein, Quantitative 10.0H, Pro-B-Type Natriuretic Peptide 3190H, Total Protein 8.1, Albumin 3.2L, Globulin 4.9, Albumin/Globulin Ratio 0.7L, Triglycerides Level 67, Cholesterol Level 71, LDL Cholesterol 28, HDL Cholesterol 37L, Cholesterol/HDL Ratio 1.9L, Vitamin B12 Level 1789H, Folate 31.2, Thyroid Stimulating Hormone (TSH) 1.004 Height (Feet): 5 Height (Inches): 9.00 Weight (Pounds): 145 EENT: PERRL/EOMI Respiratory/Chest: lungs clear Pranav Le MD Aug 22, 2017 21:18
--- NOTE | 2017-08-22 23:30 | Consultation ---
DATE OF CONSULTATION: 08/22/2017 HEMATOLOGY/ONCOLOGY CONSULTATION CONSULTING PHYSICIAN: Tawanda Arrington M.D. REQUESTING PHYSICIAN: Pranav Le M.D. REASON FOR CONSULTATION: Evaluation of leukocytosis. IDENTIFICATION DATA: Dear Dr. Le, The patient is a pleasant 87-year-old male with a past medical history which is significant for organic brain syndrome, constipation, hypothyroidism, dementia, hyperlipidemia, chronic pain syndrome, and GERD, at this time presented to the hospital with failure to thrive, admitted for FLOR, dehydration, as well as potentially elevated troponin, has been seen by Cardiology service as well as Nephrology at this time. The patient noted to have hypernatremia, noted to have leukocytosis, therefore, Hematology Service was consulted for evaluation and treatment. PAST MEDICAL HISTORY: Hypertension, GERD, organic brain syndrome, hyperlipidemia, dementia, and hypothyroidism. MEDICATIONS: Crestor, Ultram, . ALLERGIES: No known drug allergies. SOCIAL HISTORY: Difficult to obtain, the patient comes from custodial. FAMILY HISTORY: Difficult to obtain. REVIEW OF SYSTEMS: The patient is a poor historian.SKIN: No rashes, bumps, or itching. HEENT: No headache, hearing or vision changes. BREASTS: No lumps, pain, or discharge. PULMONARY: No cough, sputum, or shortness of breath. GASTROINTESTINAL: No nausea, vomiting, or diarrhea. GENITOURINARY: No dysuria, frequency, or urgency. MUSCULOSKELETAL: No joint swelling, muscle pain, or trauma. PHYSICAL EXAMINATION: GENERAL: No distress. VITAL SIGNS: Reviewed. PULMONARY: Decreased breath sounds. CARDIOVASCULAR: Regular rate. No S3 or S4. ABDOMEN: Soft, nontender, and nondistended. EXTREMITIES: Has 1+ edema. LABORATORY DATA: WBC of 18,000, hemoglobin 15.7, hematocrit 46, and platelet count . BUN of 98 and creatinine 3.5. ASSESSMENT AND RECOMMENDATIONS: 1. Leukocytosis secondary to underlying infection. Continue to closely monitor versus reactive process. 2. Acute kidney injury likely secondary to dehydration. 3. Hypernatremia secondary to dehydration. 4. Failure to thrive. Continue to closely monitor, potentially secondary to decreased fluid intake. Gastrointestinal evaluation as needed. 5. Benign prostatic hypertrophy. At this time, continue tamsulosin. Tawanda Arrington M.D. DR: CASSY JOB#: [id number] CC:
[2017-08-23 00:03] VITALS: BP 126/62
[2017-08-23 04:00] VITALS: BP 125/58
[2017-08-23 08:04] VITALS: BP 125/76
[2017-08-23 08:58] LABS: BASOPHILS % (AUTO) 0.2 % (0.0-2.0); EOSINOPHILS % (AUTO) 1.6 % (0.0-3.0); LYMPHOCYTES % (AUTO) 12.1 % (20.0-45.0); MEAN CORPUSCULAR HEMOGLOBIN 31.5 PG (27.0-31.0); MEAN CORPUSCULAR HGB CONC 33.5 G/DL (32.0-36.0); MEAN CORPUSCULAR VOLUME 94 FL (80-99); MEAN PLATELET VOLUME 6.3 FL (6.5-10.1); MONOCYTES % (AUTO) 4.3 % (1.0-10.0); NEUTROPHILS % (AUTO) 81.8 % (45.0-75.0); PLATELET COUNT 199 K/UL (150-450); RED BLOOD COUNT 4.13 M/UL (4.70-6.10); RED CELL DISTRIBUTION WIDTH 11.3 % (11.6-14.8); WHITE BLOOD COUNT 13.2 K/UL (4.8-10.8)
[2017-08-23] MEDS ORDERED: KCl 10% 40mEq/30ml liquid NG SCH (09:00)
[2017-08-23 09:22] LABS: ALANINE AMINOTRANSFERASE 32 U/L (12-78); ALBUMIN/GLOBULIN RATIO 0.6 (1.0-2.7); ANION GAP 7 mmol/L (5-15); ASPARTATE AMINO TRANSFERASE 30 U/L (15-37); CALCIUM 8.6 MG/DL (8.5-10.1); CARBON DIOXIDE 28 MMOL/L (21-32); CHLORIDE 116 MMOL/L (98-107); CREATININE 1.7 MG/DL (0.55-1.30); CRP QUANT 8.2 mg/dL (0.00-0.90); MAGNESIUM 2.4 MG/DL (1.8-2.4); PHOSPHORUS 2.5 MG/DL (2.5-4.9); POTASSIUM 3.7 MMOL/L (3.5-5.1); SODIUM 151 MMOL/L (136-145); TOTAL PROTEIN 7.2 G/DL (6.4-8.2)
--- NOTE | 2017-08-23 09:29 | Nephrology Progress Note ---
Assessment/Plan Problem List: (1) Renal failure (2) Failure to thrive (3) Hypernatremia (4) Dehydration Assessment Renal failure- cr lower dehydration- Hypernatremia FTT DM CVA with left weakness Low Thyroid HTN PAF PVD Plan Plan: todays labs pending- 1/2 NS has condom cath Urine studies- monitor renal parameters Keep BP and BS in check med surg. Subjective ROS Limited/Unobtainable: No Objective Objective Last 24 Hour Vital Signs Date Time Temp Pulse Resp B/P (MAP) Pulse Ox O2 Delivery O2 Flow Rate FiO2 08/23/17 08:04 97.3 75 20 125/76 95 08/23/17 04:00 97.7 74 20 125/58 97 Room Air 08/23/17 04:00 69 08/23/17 00:03 97.7 84 20 126/62 96 Room Air 08/23/17 00:00 66 08/22/17 20:03 97.7 73 18 120/57 97 Room Air 08/22/17 20:00 73 08/22/17 16:02 97.7 81 18 123/50 95 08/22/17 15:06 75 08/22/17 11:38 97.5 72 20 118/61 95 08/22/17 11:16 78 Intake and Output 08/23/17 08/24/17 19:00 07:00 # Voids 1 Laboratory Tests 08/23/17 08:45: White Blood Count 13.2H, Red Blood Count 4.13L, Hemoglobin 13.0L, Hematocrit 38.8L, Mean Corpuscular Volume 94, Mean Corpuscular Hemoglobin 31.5H, Mean Corpuscular Hemoglobin Concent 33.5, Red Cell Distribution Width 11.3L, Platelet Count 199, Mean Platelet Volume 6.3L, Neutrophils (%) (Auto) 81.8H, Lymphocytes (%) (Auto) 12.1L, Monocytes (%) (Auto) 4.3, Eosinophils (%) (Auto) 1.6, Basophils (%) (Auto) 0.2, Sodium Level [Pending], Potassium Level [Pending] , Chloride Level [Pending], Carbon Dioxide Level [Pending], Blood Urea Nitrogen [Pending], Creatinine [Pending], Estimat Glomerular Filtration Rate [Pending], Glucose Level [Pending], Uric Acid [Pending], Calcium Level [Pending], Phosphorus Level [Pending], Magnesium Level [Pending], Total Bilirubin [Pending] , Aspartate Amino Transf (AST/SGOT) [Pending], Alanine Aminotransferase (ALT/ SGPT) [Pending], Alkaline Phosphatase [Pending], C-Reactive Protein, Quantitative [Pending], Pro-B-Type Natriuretic Peptide [Pending], Total Protein [Pending], Albumin [Pending], Globulin [Pending] Height (Feet): 5 Height (Inches): 9.00 Weight (Pounds): 145 General Appearance: no apparent distress Objective no change JOSE NORRIS Aug 23, 2017 09:29
[2017-08-23] MEDS ORDERED: Allopurinol 100mg Tab ORAL SCH (10:30)
--- NOTE | 2017-08-23 11:06 | Infectious Diseases Prog Note ---
Assessment/Plan Assessment/Plan A UTi Leukocytosis improving DM Dementia Acute renal failure Hypernatremia P; Continue Rocephin Will f/u UC Subjective ROS Limited/Unobtainable: Yes Allergies: Coded Allergies: No Known Allergies (Unverified , 08/21/17) Objective Vital Signs Last 24 Hour Vital Signs Date Time Temp Pulse Resp B/P (MAP) Pulse Ox O2 Delivery O2 Flow Rate FiO2 08/23/17 08:04 97.3 75 20 125/76 95 08/23/17 04:00 97.7 74 20 125/58 97 Room Air 08/23/17 04:00 69 08/23/17 00:03 97.7 84 20 126/62 96 Room Air 08/23/17 00:00 66 08/22/17 20:03 97.7 73 18 120/57 97 Room Air 08/22/17 20:00 73 08/22/17 16:02 97.7 81 18 123/50 95 08/22/17 15:06 75 08/22/17 11:38 97.5 72 20 118/61 95 08/22/17 11:16 78 Height (Feet): 5 Height (Inches): 9.00 Weight (Pounds): 145 General Appearance: no acute distress HEENT: mucous membranes moist Respiratory/Chest: lungs clear Cardiovascular: normal rate Abdomen: soft, non tender Extremities: no edema Neurologic/Psychiatric: alert, disoriented Microbiology Date/Time Source Procedure Growth Status 08/21/17 14:25 Blood Blood Culture - Preliminary NO GROWTH AFTER 24 HOURS Resulted 08/21/17 14:20 Blood Blood Culture - Preliminary NO GROWTH AFTER 24 HOURS Resulted 08/21/17 17:47 Nasal Nares MRSA Culture - Final NO METHICILLIN RESISTANT STAPH AUREUS... Complete 08/21/17 15:34 Urine,Clean Catch Urine Culture - Preliminary Gram Negative Bacillus 1 Resulted 08/21/17 17:47 Rectum VRE Culture - Final NO VANCOMYCIN RESISTANT ENTEROCOCCUS ... Complete Laboratory Tests Test 08/23/17 08:45 White Blood Count 13.2 K/UL (4.8-10.8) H Red Blood Count 4.13 M/UL (4.70-6.10) L Hemoglobin 13.0 G/DL (14.2-18.0) L Hematocrit 38.8 % (42.0-52.0) L Mean Corpuscular Volume 94 FL (80-99) Mean Corpuscular Hemoglobin 31.5 PG (27.0-31.0) H Mean Corpuscular Hemoglobin Concent 33.5 G/DL (32.0-36.0) Red Cell Distribution Width 11.3 % (11.6-14.8) L Platelet Count 199 K/UL (150-450) Mean Platelet Volume 6.3 FL (6.5-10.1) L Neutrophils (%) (Auto) 81.8 % (45.0-75.0) H Lymphocytes (%) (Auto) 12.1 % (20.0-45.0) L Monocytes (%) (Auto) 4.3 % (1.0-10.0) Eosinophils (%) (Auto) 1.6 % (0.0-3.0) Basophils (%) (Auto) 0.2 % (0.0-2.0) Sodium Level 151 MMOL/L (136-145) H Potassium Level 3.7 MMOL/L (3.5-5.1) Chloride Level 116 MMOL/L (98-107) H Carbon Dioxide Level 28 MMOL/L (21-32) Anion Gap 7 mmol/L (5-15) Blood Urea Nitrogen 50 mg/dL (7-18) H Creatinine 1.7 MG/DL (0.55-1.30) H Estimat Glomerular Filtration Rate mL/min (>60) Glucose Level 142 MG/DL (74-106) H Uric Acid 11.0 MG/DL (2.6-7.2) H Calcium Level 8.6 MG/DL (8.5-10.1) Phosphorus Level 2.5 MG/DL (2.5-4.9) Magnesium Level 2.4 MG/DL (1.8-2.4) Total Bilirubin 0.7 MG/DL (0.2-1.0) Aspartate Amino Transf (AST/SGOT) 30 U/L (15-37) Alanine Aminotransferase (ALT/SGPT) 32 U/L (12-78) Alkaline Phosphatase 94 U/L (46-116) C-Reactive Protein, Quantitative 8.2 mg/dL (0.00-0.90) H Pro-B-Type Natriuretic Peptide 3718 pg/mL (0-125) H Total Protein 7.2 G/DL (6.4-8.2) Albumin 2.7 G/DL (3.4-5.0) L Globulin 4.5 g/dL Albumin/Globulin Ratio 0.6 (1.0-2.7) L Current Medications Medications (Trade) Dose Ordered Sig/Roberth Route PRN Reason Start Time Stop Time Status Last Admin Dose Admin Allopurinol (Zyloprim) 200 mg DAILY ORAL 08/23/17 10:30 09/22/17 10:29 08/23/17 10:50 Ceftriaxone Sodium 1 gm/ Dextrose 55 ml @ 110 mls/hr Q24H IVPB 08/22/17 15:00 08/29/17 14:59 08/22/17 14:03 Dextrose 1,000 ml @ 75 mls/hr [id number] IV 08/23/17 10:30 09/22/17 10:29 08/23/17 10:49 Pantoprazole (Protonix) 40 mg DAILY ORAL 08/23/17 10:30 09/22/17 10:29 08/23/17 10:50 Potassium Chloride (KCl 10% 40mEq Oral solution) 40 meq DAILY ORAL 08/24/17 09:00 09/23/17 08:59 Tamsulosin HCl (Flomax) 0.4 mg BEDTIME ORAL 08/22/17 21:00 09/21/17 20:59 08/22/17 20:36 SHERIN TRUONG Aug 23, 2017 11:06
[2017-08-23 11:45] VITALS: BP 132/58
--- NOTE | 2017-08-23 12:31 | General Progress Note ---
Assessment/Plan Problem List: (1) Failure to thrive SNOMED: 68857824 (2) Hypernatremia ICD Codes: E87.0 - Hyperosmolality and hypernatremia SNOMED: 28612833 (3) Renal failure ICD Codes: N19 - Unspecified kidney failure SNOMED: 61466722 (4) Dehydration ICD Codes: E86.0 - Dehydration SNOMED: 97114277 (5) Elevated troponin I level ICD Codes: R74.8 - Abnormal levels of other serum enzymes SNOMED: 044776322 Status: progressing Assessment/Plan afebrile arf ftt sepsis and uti abx per id dehydration is improving azotemia improving clinically improving Subjective ROS Limited/Unobtainable: Yes Allergies: Coded Allergies: No Known Allergies (Unverified , 08/21/17) Objective Last 24 Hour Vital Signs Date Time Temp Pulse Resp B/P (MAP) Pulse Ox O2 Delivery O2 Flow Rate FiO2 08/23/17 11:45 97.0 65 20 132/58 96 08/23/17 08:04 97.3 75 20 125/76 95 08/23/17 04:00 97.7 74 20 125/58 97 Room Air 08/23/17 04:00 69 08/23/17 00:03 97.7 84 20 126/62 96 Room Air 08/23/17 00:00 66 08/22/17 20:03 97.7 73 18 120/57 97 Room Air 08/22/17 20:00 73 08/22/17 16:02 97.7 81 18 123/50 95 08/22/17 15:06 75 Intake and Output 08/23/17 08/24/17 19:00 07:00 # Voids 1 Laboratory Tests 08/23/17 08:45: White Blood Count 13.2H, Red Blood Count 4.13L, Hemoglobin 13.0L, Hematocrit 38.8L, Mean Corpuscular Volume 94, Mean Corpuscular Hemoglobin 31.5H, Mean Corpuscular Hemoglobin Concent 33.5, Red Cell Distribution Width 11.3L, Platelet Count 199, Mean Platelet Volume 6.3L, Neutrophils (%) (Auto) 81.8H, Lymphocytes (%) (Auto) 12.1L, Monocytes (%) (Auto) 4.3, Eosinophils (%) (Auto) 1.6, Basophils (%) (Auto) 0.2, Sodium Level 151H, Potassium Level 3.7, Chloride Level 116H, Carbon Dioxide Level 28, Anion Gap 7, Blood Urea Nitrogen 50H, Creatinine 1.7H, Estimat Glomerular Filtration Rate , Glucose Level 142H, Uric Acid 11.0H, Calcium Level 8.6, Phosphorus Level 2.5, Magnesium Level 2.4, Total Bilirubin 0.7, Aspartate Amino Transf (AST/SGOT) 30, Alanine Aminotransferase ( ALT/SGPT) 32, Alkaline Phosphatase 94, C-Reactive Protein, Quantitative 8.2H, Pro-B-Type Natriuretic Peptide 3718H, Total Protein 7.2, Albumin 2.7L, Globulin 4.5, Albumin/Globulin Ratio 0.6L Height (Feet): 5 Height (Inches): 9.00 Weight (Pounds): 145 Cardiovascular: normal rate Respiratory/Chest: lungs clear Abdomen: soft Pranav Le MD Aug 23, 2017 12:31
--- NOTE | 2017-08-23 14:56 | Cardiology Report ---
APPROVED REPORT EXAM: Two-dimensional and M-mode echocardiogram with Doppler and color Doppler. INDICATION Acute myocardial infarction Other Information Technically limited study due to poor acoustic windows Technically difficult study due to poor parasternal acoustical windows. Study quality precludes accurate assessment of regional wall motion. M-mode measurements of left ventricle not obtainable due to cardiac position (angle) Normal left ventricular chamber size. Global left ventricular hypokinesis. Left ventricular ejection fraction estimated to be 40-45 %. No evidence of left ventricular hypertrophy. No evidence of pericardial effusion. All other cardiac chamber sizes are within normal limits. Mild focal aortic valve sclerosis with adequate cusp excursion. Mildly thickened mitral valve leaflets with normal excursion. Mild mitral annulus and aortic root calcification. Pulmonic valve not visualized. Normal tricuspid valve structure. Subcostal views not obtainable. A color flow and spectral Doppler study was performed and revealed: Trace aortic regurgitation. No mitral regurgitation. Mitral inflow velocities indicates possible pseudo normalization pattern implying moderately elevated left atrial pressure (Grade II ). No tricuspid regurgitation.
[2017-08-23] MEDS ORDERED: cefTRIAXone 1 GM in D5W 55 ML IVPB SCH (15:00)
--- NOTE | 2017-08-23 15:28 | General Progress Note ---
Assessment/Plan Assessment/Plan ASSESSMENT AND RECOMMENDATIONS: #. Anemia, currently mild. Workup further if continues to drop. #. Leukocytosis secondary to underlying infection. ID following, on antibiotics. #. Acute kidney injury likely secondary to dehydration. #. Hypernatremia secondary to dehydration. #. Benign prostatic hypertrophy. At this time, continue tamsulosin. Subjective Allergies: Coded Allergies: No Known Allergies (Unverified , 08/21/17) All Systems: reviewed and negative except above Subjective NAD Objective Last 24 Hour Vital Signs Date Time Temp Pulse Resp B/P (MAP) Pulse Ox O2 Delivery O2 Flow Rate FiO2 08/23/17 11:45 97.0 65 20 132/58 96 08/23/17 08:04 97.3 75 20 125/76 95 08/23/17 04:00 97.7 74 20 125/58 97 Room Air 08/23/17 04:00 69 08/23/17 00:03 97.7 84 20 126/62 96 Room Air 08/23/17 00:00 66 08/22/17 20:03 97.7 73 18 120/57 97 Room Air 08/22/17 20:00 73 08/22/17 16:02 97.7 81 18 123/50 95 Intake and Output 08/23/17 08/24/17 19:00 07:00 Intake Total 75 ml Balance 75 ml IV Total 75 ml # Voids 2 Laboratory Tests 08/23/17 08:45: White Blood Count 13.2H, Red Blood Count 4.13L, Hemoglobin 13.0L, Hematocrit 38.8L, Mean Corpuscular Volume 94, Mean Corpuscular Hemoglobin 31.5H, Mean Corpuscular Hemoglobin Concent 33.5, Red Cell Distribution Width 11.3L, Platelet Count 199, Mean Platelet Volume 6.3L, Neutrophils (%) (Auto) 81.8H, Lymphocytes (%) (Auto) 12.1L, Monocytes (%) (Auto) 4.3, Eosinophils (%) (Auto) 1.6, Basophils (%) (Auto) 0.2, Sodium Level 151H, Potassium Level 3.7, Chloride Level 116H, Carbon Dioxide Level 28, Anion Gap 7, Blood Urea Nitrogen 50H, Creatinine 1.7H, Estimat Glomerular Filtration Rate , Glucose Level 142H, Uric Acid 11.0H, Calcium Level 8.6, Phosphorus Level 2.5, Magnesium Level 2.4, Total Bilirubin 0.7, Aspartate Amino Transf (AST/SGOT) 30, Alanine Aminotransferase ( ALT/SGPT) 32, Alkaline Phosphatase 94, C-Reactive Protein, Quantitative 8.2H, Pro-B-Type Natriuretic Peptide 3718H, Total Protein 7.2, Albumin 2.7L, Globulin 4.5, Albumin/Globulin Ratio 0.6L Height (Feet): 5 Height (Inches): 9.00 Weight (Pounds): 145 General Appearance: no apparent distress, lethargic EENT: normal ENT inspection Neck: normal alignment Cardiovascular: normal peripheral pulses Respiratory/Chest: chest wall non-tender Skin: warm/dry Tawanda Arrington Aug 23, 2017 15:28
[2017-08-23 16:15] VITALS: BP 125/60
[2017-08-23] MEDS ORDERED: 1/2 NS 1000ml IV ONE (16:34)
[2017-08-23 19:33] VITALS: BP 125/64
[2017-08-23] MEDS: Tamsulosin 0.4mg cap ORAL SCH (20:48)
--- NOTE | 2017-08-23 23:40 | Cardiology Progress Note ---
Assessment/Plan Assessment/Plan 1. Slight elevation of troponin I level in this patient could be secondary to his underlying acute renal failure, sepsis, or tachycardia. No complains about chest pain, no ischemic features on the ECG, continue conservative therapy. Echo reveals LVEF ~45%. 2. Paroxysmal atrial fibrillation, currently appears to be in sinus rhythm, consider NOAC. 3. Hx of CVA, continue ASA and plavix if NOAC is not considered. Subjective Subjective Transferred to the med-surg unit. Not verbally communicating. Objective Last 24 Hour Vital Signs Date Time Temp Pulse Resp B/P (MAP) Pulse Ox O2 Delivery O2 Flow Rate FiO2 08/23/17 19:33 97.0 64 19 125/64 96 Room Air 08/23/17 16:15 97.3 68 19 125/60 97 Room Air 08/23/17 11:45 97.0 65 20 132/58 96 08/23/17 08:04 97.3 75 20 125/76 95 08/23/17 04:00 97.7 74 20 125/58 97 Room Air 08/23/17 04:00 69 08/23/17 00:03 97.7 84 20 126/62 96 Room Air 08/23/17 00:00 66 Intake and Output 08/23/17 08/24/17 19:00 07:00 Intake Total 455 ml Balance 455 ml Intake Oral 120 ml IV Total 335 ml # Voids 2 2D Echo: LVEF ~45%, global LV hypokinesia, Grade II LVDD/Pseudo-normal LV physio. Laboratory Tests Test 08/23/17 08:45 White Blood Count 13.2 K/UL (4.8-10.8) H Red Blood Count 4.13 M/UL (4.70-6.10) L Hemoglobin 13.0 G/DL (14.2-18.0) L Hematocrit 38.8 % (42.0-52.0) L Mean Corpuscular Volume 94 FL (80-99) Mean Corpuscular Hemoglobin 31.5 PG (27.0-31.0) H Mean Corpuscular Hemoglobin Concent 33.5 G/DL (32.0-36.0) Red Cell Distribution Width 11.3 % (11.6-14.8) L Platelet Count 199 K/UL (150-450) Mean Platelet Volume 6.3 FL (6.5-10.1) L Neutrophils (%) (Auto) 81.8 % (45.0-75.0) H Lymphocytes (%) (Auto) 12.1 % (20.0-45.0) L Monocytes (%) (Auto) 4.3 % (1.0-10.0) Eosinophils (%) (Auto) 1.6 % (0.0-3.0) Basophils (%) (Auto) 0.2 % (0.0-2.0) Sodium Level 151 MMOL/L (136-145) H Potassium Level 3.7 MMOL/L (3.5-5.1) Chloride Level 116 MMOL/L (98-107) H Carbon Dioxide Level 28 MMOL/L (21-32) Anion Gap 7 mmol/L (5-15) Blood Urea Nitrogen 50 mg/dL (7-18) H Creatinine 1.7 MG/DL (0.55-1.30) H Estimat Glomerular Filtration Rate mL/min (>60) Glucose Level 142 MG/DL (74-106) H Uric Acid 11.0 MG/DL (2.6-7.2) H Calcium Level 8.6 MG/DL (8.5-10.1) Phosphorus Level 2.5 MG/DL (2.5-4.9) Magnesium Level 2.4 MG/DL (1.8-2.4) Total Bilirubin 0.7 MG/DL (0.2-1.0) Aspartate Amino Transf (AST/SGOT) 30 U/L (15-37) Alanine Aminotransferase (ALT/SGPT) 32 U/L (12-78) Alkaline Phosphatase 94 U/L (46-116) C-Reactive Protein, Quantitative 8.2 mg/dL (0.00-0.90) H Pro-B-Type Natriuretic Peptide 3718 pg/mL (0-125) H Total Protein 7.2 G/DL (6.4-8.2) Albumin 2.7 G/DL (3.4-5.0) L Globulin 4.5 g/dL Albumin/Globulin Ratio 0.6 (1.0-2.7) L Microbiology Date/Time Source Procedure Growth Status 08/21/17 14:25 Blood Blood Culture - Preliminary NO GROWTH AFTER 24 HOURS Resulted 08/21/17 14:20 Blood Blood Culture - Preliminary NO GROWTH AFTER 24 HOURS Resulted 08/21/17 17:47 Nasal Nares MRSA Culture - Final NO METHICILLIN RESISTANT STAPH AUREUS... Complete 08/21/17 15:34 Urine,Clean Catch Urine Culture - Preliminary Gram Negative Bacillus 1 Resulted 08/21/17 17:47 Rectum VRE Culture - Final NO VANCOMYCIN RESISTANT ENTEROCOCCUS ... Complete Objective HEENT: Atraumatic and normocephalic. Anicteric. There is bitemporal wasting. Pupils are equal, round, and reactive to light and accommodation. Conjunctival pallor is evident. NECK: JVP less than 5 cm. No carotid bruit. Carotid upstroke is 2+ bilaterally. CVS: Normal S1 and S2. Regular rate and rhythm. No murmurs, gallops, or rubs. PMI is at fourth intercostal space in the midclavicular line. LUNGS: Clear to auscultation bilaterally. ABDOMEN: Soft, nontender, and nondistended. No hepatosplenomegaly. Positive bowel sounds. EXTREMITIES: No evidence of edema, clubbing, or cyanosis. There is left-sided hemiparesis. REBECCA SANCHEZ Aug 23, 2017 23:40
[2017-08-24] VITALS (7 sets, daily range): BP systolic 120–143; BP diastolic 65–71
[2017-08-24] MEDS ORDERED: KCl 10% 40mEq/30ml liquid ORAL SCH (09:00)
[2017-08-24] MEDS: Allopurinol 100mg Tab ORAL SCH (09:42)
[2017-08-24] MEDS: KCl 10% 40mEq/30ml liquid ORAL SCH (09:43)
[2017-08-24 10:56] LABS: BASOPHILS % (AUTO) 0.3 % (0.0-2.0); EOSINOPHILS % (AUTO) 2.6 % (0.0-3.0); LYMPHOCYTES % (AUTO) 18.6 % (20.0-45.0); MEAN CORPUSCULAR HEMOGLOBIN 31.6 PG (27.0-31.0); MEAN CORPUSCULAR HGB CONC 33.6 G/DL (32.0-36.0); MEAN CORPUSCULAR VOLUME 94 FL (80-99); MEAN PLATELET VOLUME 6.4 FL (6.5-10.1); MONOCYTES % (AUTO) 6.4 % (1.0-10.0); NEUTROPHILS % (AUTO) 72.1 % (45.0-75.0); PLATELET COUNT 180 K/UL (150-450); RED BLOOD COUNT 4.03 M/UL (4.70-6.10); RED CELL DISTRIBUTION WIDTH 10.8 % (11.6-14.8); WHITE BLOOD COUNT 7.5 K/UL (4.8-10.8)
[2017-08-24 11:09] LABS: ANION GAP 8 mmol/L (5-15); CALCIUM 8.6 MG/DL (8.5-10.1); CARBON DIOXIDE 26 MMOL/L (21-32); CHLORIDE 114 MMOL/L (98-107); CREATININE 1.5 MG/DL (0.55-1.30); SODIUM 148 MMOL/L (136-145)
--- NOTE | 2017-08-24 11:52 | Nephrology Progress Note ---
Assessment/Plan Problem List: (1) Renal failure (2) Failure to thrive (3) Hypernatremia (4) Dehydration Assessment Renal failure- cr lower dehydration- Hypernatremia FTT DM CVA with left weakness Low Thyroid HTN PAF PVD Plan Plan: todays labs pending- Dc IV fluids has condom cath Urine studies- monitor renal parameters Keep BP and BS in check med surg. Subjective ROS Limited/Unobtainable: No Objective Objective Last 24 Hour Vital Signs Date Time Temp Pulse Resp B/P (MAP) Pulse Ox O2 Delivery O2 Flow Rate FiO2 08/24/17 08:15 97.9 65 19 132/66 99 Room Air 08/24/17 03:41 97.6 64 19 125/68 Room Air 08/24/17 00:00 97.1 68 19 143/66 97 Room Air 08/23/17 19:33 97.0 64 19 125/64 96 Room Air 08/23/17 16:15 97.3 68 19 125/60 97 Room Air Laboratory Tests 08/24/17 10:30: White Blood Count 7.5, Red Blood Count 4.03L, Hemoglobin 12.7L, Hematocrit 37.9L , Mean Corpuscular Volume 94, Mean Corpuscular Hemoglobin 31.6H, Mean Corpuscular Hemoglobin Concent 33.6, Red Cell Distribution Width 10.8L, Platelet Count 180, Mean Platelet Volume 6.4L, Neutrophils (%) (Auto) 72.1, Lymphocytes (%) (Auto) 18.6L, Monocytes (%) (Auto) 6.4, Eosinophils (%) (Auto) 2.6, Basophils (%) (Auto) 0.3, Sodium Level 148H, Potassium Level 4.0, Chloride Level 114H, Carbon Dioxide Level 26, Anion Gap 8, Blood Urea Nitrogen 33H, Creatinine 1.5H, Estimat Glomerular Filtration Rate , Glucose Level 209H, Calcium Level 8.6, Troponin I 0.100H Height (Feet): 5 Height (Inches): 9.00 Weight (Pounds): 145 General Appearance: no apparent distress Objective no change JOSE NORRIS Aug 24, 2017 11:52
--- NOTE | 2017-08-24 12:42 | Infectious Diseases Prog Note ---
Assessment/Plan Assessment/Plan A UTI with pseudomonas Leukocytosis resolved DM Dementia Acute renal failure improving Hypernatremia P; Change Rocephin to Levaquin Will f/u UC Subjective ROS Limited/Unobtainable: Yes Allergies: Coded Allergies: No Known Allergies (Unverified , 08/21/17) Objective Vital Signs Last 24 Hour Vital Signs Date Time Temp Pulse Resp B/P (MAP) Pulse Ox O2 Delivery O2 Flow Rate FiO2 08/24/17 12:15 98.0 72 21 120/71 99 Room Air 08/24/17 08:15 97.9 65 19 132/66 99 Room Air 08/24/17 03:41 97.6 64 19 125/68 Room Air 08/24/17 00:00 97.1 68 19 143/66 97 Room Air 08/23/17 19:33 97.0 64 19 125/64 96 Room Air 08/23/17 16:15 97.3 68 19 125/60 97 Room Air Height (Feet): 5 Height (Inches): 9.00 Weight (Pounds): 145 General Appearance: no acute distress HEENT: mucous membranes moist Respiratory/Chest: lungs clear Cardiovascular: normal rate Abdomen: soft, non tender Extremities: no edema Neurologic/Psychiatric: alert, other - nonverbal Microbiology Date/Time Source Procedure Growth Status 08/21/17 14:25 Blood Blood Culture - Preliminary NO GROWTH AFTER 48 HOURS Resulted 08/21/17 14:20 Blood Blood Culture - Preliminary NO GROWTH AFTER 48 HOURS Resulted 08/21/17 17:47 Nasal Nares MRSA Culture - Final NO METHICILLIN RESISTANT STAPH AUREUS... Complete 08/21/17 15:34 Urine,Clean Catch Urine Culture - Preliminary Pseudomonas Aeruginosa Staphylococcus Species Streptococcus Species Resulted 08/21/17 17:47 Rectum VRE Culture - Final NO VANCOMYCIN RESISTANT ENTEROCOCCUS ... Complete Laboratory Tests Test 08/24/17 10:30 White Blood Count 7.5 K/UL (4.8-10.8) Red Blood Count 4.03 M/UL (4.70-6.10) L Hemoglobin 12.7 G/DL (14.2-18.0) L Hematocrit 37.9 % (42.0-52.0) L Mean Corpuscular Volume 94 FL (80-99) Mean Corpuscular Hemoglobin 31.6 PG (27.0-31.0) H Mean Corpuscular Hemoglobin Concent 33.6 G/DL (32.0-36.0) Red Cell Distribution Width 10.8 % (11.6-14.8) L Platelet Count 180 K/UL (150-450) Mean Platelet Volume 6.4 FL (6.5-10.1) L Neutrophils (%) (Auto) 72.1 % (45.0-75.0) Lymphocytes (%) (Auto) 18.6 % (20.0-45.0) L Monocytes (%) (Auto) 6.4 % (1.0-10.0) Eosinophils (%) (Auto) 2.6 % (0.0-3.0) Basophils (%) (Auto) 0.3 % (0.0-2.0) Sodium Level 148 MMOL/L (136-145) H Potassium Level 4.0 MMOL/L (3.5-5.1) Chloride Level 114 MMOL/L (98-107) H Carbon Dioxide Level 26 MMOL/L (21-32) Anion Gap 8 mmol/L (5-15) Blood Urea Nitrogen 33 mg/dL (7-18) H Creatinine 1.5 MG/DL (0.55-1.30) H Estimat Glomerular Filtration Rate mL/min (>60) Glucose Level 209 MG/DL (74-106) H Calcium Level 8.6 MG/DL (8.5-10.1) Troponin I 0.100 ng/mL (0.000-0.056) Current Medications Medications (Trade) Dose Ordered Sig/Roberth Route PRN Reason Start Time Stop Time Status Last Admin Dose Admin Allopurinol (Zyloprim) 200 mg DAILY ORAL 08/24/17 09:00 09/22/17 10:29 08/24/17 09:42 Ceftriaxone Sodium 1 gm/ Dextrose 55 ml @ 110 mls/hr Q24H IVPB 08/23/17 15:00 08/29/17 14:59 08/23/17 15:58 Dextrose 1,000 ml @ 75 mls/hr [id number] IV 08/23/17 12:30 09/22/17 12:29 08/24/17 04:34 Pantoprazole (Protonix) 40 mg DAILY ORAL 08/24/17 09:00 09/22/17 10:29 08/24/17 09:42 Potassium Chloride (KCl 10% 40mEq Oral solution) 40 meq DAILY ORAL 08/24/17 09:00 09/23/17 08:59 08/24/17 09:43 Tamsulosin HCl (Flomax) 0.4 mg BEDTIME ORAL 08/23/17 21:00 09/21/17 20:59 08/23/17 20:48 SHERIN TRUONG Aug 24, 2017 12:42
[2017-08-24] MEDS ORDERED: Levofloxacin 500mg tab ORAL SCH (14:00)
--- NOTE | 2017-08-24 16:15 | General Progress Note ---
Assessment/Plan Assessment/Plan ASSESSMENT AND RECOMMENDATIONS: #. Anemia, currently mild. Workup further if continues to drop. #. Leukocytosis secondary to underlying infection. ID following, on antibiotics. --> WBC count has normalized #. Benign prostatic hypertrophy. At this time, continue tamsulosin. Subjective Allergies: Coded Allergies: No Known Allergies (Unverified , 08/21/17) All Systems: reviewed and negative except above Subjective afebrile, no events overnight Objective Last 24 Hour Vital Signs Date Time Temp Pulse Resp B/P (MAP) Pulse Ox O2 Delivery O2 Flow Rate FiO2 08/24/17 15:59 97.9 64 21 125/65 98 Room Air 08/24/17 12:15 98.0 72 21 120/71 99 Room Air 08/24/17 08:15 97.9 65 19 132/66 99 Room Air 08/24/17 03:41 97.6 64 19 125/68 Room Air 08/24/17 00:00 97.1 68 19 143/66 97 Room Air 08/23/17 19:33 97.0 64 19 125/64 96 Room Air 08/23/17 16:15 97.3 68 19 125/60 97 Room Air Intake and Output 08/24/17 08/25/17 19:00 07:00 Intake Total 120 ml Balance 120 ml Intake Oral 120 ml Laboratory Tests 08/24/17 10:30: White Blood Count 7.5, Red Blood Count 4.03L, Hemoglobin 12.7L, Hematocrit 37.9L , Mean Corpuscular Volume 94, Mean Corpuscular Hemoglobin 31.6H, Mean Corpuscular Hemoglobin Concent 33.6, Red Cell Distribution Width 10.8L, Platelet Count 180, Mean Platelet Volume 6.4L, Neutrophils (%) (Auto) 72.1, Lymphocytes (%) (Auto) 18.6L, Monocytes (%) (Auto) 6.4, Eosinophils (%) (Auto) 2.6, Basophils (%) (Auto) 0.3, Sodium Level 148H, Potassium Level 4.0, Chloride Level 114H, Carbon Dioxide Level 26, Anion Gap 8, Blood Urea Nitrogen 33H, Creatinine 1.5H, Estimat Glomerular Filtration Rate , Glucose Level 209H, Calcium Level 8.6, Troponin I 0.100H Height (Feet): 5 Height (Inches): 9.00 Weight (Pounds): 145 General Appearance: no apparent distress EENT: normal ENT inspection Neck: normal alignment Cardiovascular: normal rate Abdomen: normal bowel sounds Extremities: non-tender Edema: trace edema Tawanda Arrington Aug 24, 2017 16:15
--- NOTE | 2017-08-24 19:01 | General Progress Note ---
Assessment/Plan Problem List: (1) Failure to thrive SNOMED: 24852272 (2) Hypernatremia ICD Codes: E87.0 - Hyperosmolality and hypernatremia SNOMED: 84014729 (3) Renal failure ICD Codes: N19 - Unspecified kidney failure SNOMED: 83924004 (4) Dehydration ICD Codes: E86.0 - Dehydration SNOMED: 69101915 (5) Elevated troponin I level ICD Codes: R74.8 - Abnormal levels of other serum enzymes SNOMED: 004425769 Status: progressing Assessment/Plan improving sepsis and uti improving hydration is improving azotemia improving clinically improving Subjective ROS Limited/Unobtainable: Yes Allergies: Coded Allergies: No Known Allergies (Unverified , 08/21/17) Objective Last 24 Hour Vital Signs Date Time Temp Pulse Resp B/P (MAP) Pulse Ox O2 Delivery O2 Flow Rate FiO2 08/24/17 15:59 97.9 64 21 125/65 98 Room Air 08/24/17 12:15 98.0 72 21 120/71 99 Room Air 08/24/17 08:15 97.9 65 19 132/66 99 Room Air 08/24/17 03:41 97.6 64 19 125/68 Room Air 08/24/17 00:00 97.1 68 19 143/66 97 Room Air 08/23/17 19:33 97.0 64 19 125/64 96 Room Air Intake and Output 08/24/17 08/25/17 19:00 07:00 Intake Total 120 ml Balance 120 ml Intake Oral 120 ml Laboratory Tests 08/24/17 10:30: White Blood Count 7.5, Red Blood Count 4.03L, Hemoglobin 12.7L, Hematocrit 37.9L , Mean Corpuscular Volume 94, Mean Corpuscular Hemoglobin 31.6H, Mean Corpuscular Hemoglobin Concent 33.6, Red Cell Distribution Width 10.8L, Platelet Count 180, Mean Platelet Volume 6.4L, Neutrophils (%) (Auto) 72.1, Lymphocytes (%) (Auto) 18.6L, Monocytes (%) (Auto) 6.4, Eosinophils (%) (Auto) 2.6, Basophils (%) (Auto) 0.3, Sodium Level 148H, Potassium Level 4.0, Chloride Level 114H, Carbon Dioxide Level 26, Anion Gap 8, Blood Urea Nitrogen 33H, Creatinine 1.5H, Estimat Glomerular Filtration Rate , Glucose Level 209H, Calcium Level 8.6, Troponin I 0.100H Height (Feet): 5 Height (Inches): 9.00 Weight (Pounds): 145 General Appearance: confused Cardiovascular: regular rhythm Pranav Le MD Aug 24, 2017 19:01
[2017-08-24] MEDS: Tamsulosin 0.4mg cap ORAL SCH (20:45)
--- NOTE | 2017-08-24 23:57 | Cardiology Progress Note ---
Assessment/Plan Assessment/Plan 1. Slight elevation of troponin I level in this patient could be secondary to his underlying acute renal failure, sepsis, or tachycardia. No complains about chest pain, no ischemic features on the ECG, continue conservative therapy. Echo reveals LVEF ~45%. 2. Paroxysmal atrial fibrillation, currently appears to be in sinus rhythm, consider NOAC. 3. Hx of CVA, consider antiplatelet therapy for secondary preventive measures. Subjective Subjective Not on the telemetry unit. Not verbally communicating. Objective Last 24 Hour Vital Signs Date Time Temp Pulse Resp B/P (MAP) Pulse Ox O2 Delivery O2 Flow Rate FiO2 08/24/17 23:50 97.6 61 18 124/66 97 Room Air 08/24/17 19:58 97.3 66 16 136/70 93 Room Air 08/24/17 15:59 97.9 64 21 125/65 98 Room Air 08/24/17 12:15 98.0 72 21 120/71 99 Room Air 08/24/17 08:15 97.9 65 19 132/66 99 Room Air 08/24/17 03:41 97.6 64 19 125/68 Room Air 08/24/17 00:00 97.1 68 19 143/66 97 Room Air Intake and Output 08/24/17 08/25/17 19:00 07:00 Intake Total 120 ml 120 ml Balance 120 ml 120 ml Intake Oral 120 ml 120 ml # Voids 2 2D Echo: LVEF ~45%, global LV hypokinesia, Grade II LVDD/Pseudo-normal LV physio. Laboratory Tests Test 08/24/17 10:30 White Blood Count 7.5 K/UL (4.8-10.8) Red Blood Count 4.03 M/UL (4.70-6.10) L Hemoglobin 12.7 G/DL (14.2-18.0) L Hematocrit 37.9 % (42.0-52.0) L Mean Corpuscular Volume 94 FL (80-99) Mean Corpuscular Hemoglobin 31.6 PG (27.0-31.0) H Mean Corpuscular Hemoglobin Concent 33.6 G/DL (32.0-36.0) Red Cell Distribution Width 10.8 % (11.6-14.8) L Platelet Count 180 K/UL (150-450) Mean Platelet Volume 6.4 FL (6.5-10.1) L Neutrophils (%) (Auto) 72.1 % (45.0-75.0) Lymphocytes (%) (Auto) 18.6 % (20.0-45.0) L Monocytes (%) (Auto) 6.4 % (1.0-10.0) Eosinophils (%) (Auto) 2.6 % (0.0-3.0) Basophils (%) (Auto) 0.3 % (0.0-2.0) Sodium Level 148 MMOL/L (136-145) H Potassium Level 4.0 MMOL/L (3.5-5.1) Chloride Level 114 MMOL/L (98-107) H Carbon Dioxide Level 26 MMOL/L (21-32) Anion Gap 8 mmol/L (5-15) Blood Urea Nitrogen 33 mg/dL (7-18) H Creatinine 1.5 MG/DL (0.55-1.30) H Estimat Glomerular Filtration Rate mL/min (>60) Glucose Level 209 MG/DL (74-106) H Calcium Level 8.6 MG/DL (8.5-10.1) Troponin I 0.100 ng/mL (0.000-0.056) Objective HEENT: Atraumatic and normocephalic. Anicteric. There is bitemporal wasting. Pupils are equal, round, and reactive to light and accommodation. Conjunctival pallor is evident. NECK: JVP less than 5 cm. No carotid bruit. Carotid upstroke is 2+ bilaterally. CVS: Normal S1 and S2. Regular rate and rhythm. No murmurs, gallops, or rubs. PMI is at fourth intercostal space in the midclavicular line. LUNGS: Clear to auscultation bilaterally. ABDOMEN: Soft, nontender, and nondistended. No hepatosplenomegaly. Positive bowel sounds. EXTREMITIES: No evidence of edema, clubbing, or cyanosis. There is left-sided hemiparesis. REBECCA SANCHEZ Aug 24, 2017 23:57
[2017-08-25 04:00] VITALS: BP 123/70
[2017-08-25 07:14] LABS: BASOPHILS % (AUTO) 0.2 % (0.0-2.0); EOSINOPHILS % (AUTO) 2.6 % (0.0-3.0); LYMPHOCYTES % (AUTO) 20.9 % (20.0-45.0); MEAN CORPUSCULAR HEMOGLOBIN 31.1 PG (27.0-31.0); MEAN CORPUSCULAR HGB CONC 33.6 G/DL (32.0-36.0); MEAN CORPUSCULAR VOLUME 93 FL (80-99); MEAN PLATELET VOLUME 6.4 FL (6.5-10.1); MONOCYTES % (AUTO) 6.6 % (1.0-10.0); NEUTROPHILS % (AUTO) 69.6 % (45.0-75.0); PLATELET COUNT 181 K/UL (150-450); RED BLOOD COUNT 4.06 M/UL (4.70-6.10); WHITE BLOOD COUNT 4.7 K/UL (4.8-10.8)
[2017-08-25 07:48] LABS: ANION GAP 4 mmol/L (5-15); CALCIUM 8.6 MG/DL (8.5-10.1); CARBON DIOXIDE 29 MMOL/L (21-32); CHLORIDE 108 MMOL/L (98-107); CREATININE 1.3 MG/DL (0.55-1.30); POTASSIUM 4.5 MMOL/L (3.5-5.1); SODIUM 141 MMOL/L (136-145)
[2017-08-25 08:00] VITALS: BP 131/66
[2017-08-25] MEDS: KCl 10% 40mEq/30ml liquid ORAL SCH (09:26)
[2017-08-25] MEDS: Allopurinol 100mg Tab ORAL SCH (09:27)
[2017-08-25] MEDS ORDERED: LEVAQUIN500 MG ORAL (11:49)
[2017-08-25 12:00] VITALS: BP 136/73
--- NOTE | 2017-08-25 14:45 | General Progress Note ---
Assessment/Plan Assessment/Plan ASSESSMENT AND RECOMMENDATIONS: #. Anemia, currently mild. Workup further if continues to drop. #. Leukocytosis secondary to underlying infection. ID following, on antibiotics. --> WBC count has normalized #. Benign prostatic hypertrophy. At this time, continue tamsulosin. Subjective Allergies: Coded Allergies: No Known Allergies (Unverified , 08/21/17) All Systems: reviewed and negative except above Subjective NAD Objective Last 24 Hour Vital Signs Date Time Temp Pulse Resp B/P (MAP) Pulse Ox O2 Delivery O2 Flow Rate FiO2 08/25/17 12:00 97.7 49 20 136/73 99 08/25/17 08:00 98.6 66 18 131/66 94 Room Air 08/25/17 04:00 98.1 71 18 123/70 96 Room Air 08/24/17 23:50 97.6 61 18 124/66 97 Room Air 08/24/17 19:58 97.3 66 16 136/70 93 Room Air 08/24/17 15:59 97.9 64 21 125/65 98 Room Air Laboratory Tests 08/25/17 05:30: White Blood Count 4.7L, Red Blood Count 4.06L, Hemoglobin 12.7L, Hematocrit 37.6L, Mean Corpuscular Volume 93, Mean Corpuscular Hemoglobin 31.1H, Mean Corpuscular Hemoglobin Concent 33.6, Red Cell Distribution Width 11.0L, Platelet Count 181, Mean Platelet Volume 6.4L, Neutrophils (%) (Auto) 69.6, Lymphocytes (%) (Auto) 20.9, Monocytes (%) (Auto) 6.6, Eosinophils (%) (Auto) 2.6, Basophils (%) (Auto) 0.2, Sodium Level 141, Potassium Level 4.5, Chloride Level 108H, Carbon Dioxide Level 29, Anion Gap 4L, Blood Urea Nitrogen 23H, Creatinine 1.3, Estimat Glomerular Filtration Rate , Glucose Level 184H, Calcium Level 8.6, Troponin I 0.084H Height (Feet): 5 Height (Inches): 9.00 Weight (Pounds): 145 General Appearance: no apparent distress EENT: normal ENT inspection Neck: normal alignment Cardiovascular: normal peripheral pulses Respiratory/Chest: chest wall non-tender Abdomen: soft Extremities: non-tender Tawanda Arrington Aug 25, 2017 14:45
--- NOTE | 2017-08-25 20:52 | Cardiology Progress Note ---
Assessment/Plan Assessment/Plan 1. Slight elevation of troponin I level in this patient could be secondary to his underlying acute renal failure, sepsis, or tachycardia. No complains about chest pain, no ischemic features on the ECG, continue conservative therapy. Echo reveals LVEF ~45%. 2. Paroxysmal atrial fibrillation, currently appears to be in sinus rhythm, consider NOAC. 3. Hx of CVA, consider antiplatelet therapy for secondary preventive measures. Subjective Subjective Not on the telemetry unit. Not verbally communicating. Objective Last 24 Hour Vital Signs Date Time Temp Pulse Resp B/P (MAP) Pulse Ox O2 Delivery O2 Flow Rate FiO2 08/25/17 12:00 97.7 49 20 136/73 99 08/25/17 08:00 98.6 66 18 131/66 94 Room Air 08/25/17 04:00 98.1 71 18 123/70 96 Room Air 08/24/17 23:50 97.6 61 18 124/66 97 Room Air 2D Echo: LVEF ~45%, global LV hypokinesia, Grade II LVDD/Pseudo-normal LV physio. Laboratory Tests Test 08/25/17 05:30 White Blood Count 4.7 K/UL (4.8-10.8) L Red Blood Count 4.06 M/UL (4.70-6.10) L Hemoglobin 12.7 G/DL (14.2-18.0) L Hematocrit 37.6 % (42.0-52.0) L Mean Corpuscular Volume 93 FL (80-99) Mean Corpuscular Hemoglobin 31.1 PG (27.0-31.0) H Mean Corpuscular Hemoglobin Concent 33.6 G/DL (32.0-36.0) Red Cell Distribution Width 11.0 % (11.6-14.8) L Platelet Count 181 K/UL (150-450) Mean Platelet Volume 6.4 FL (6.5-10.1) L Neutrophils (%) (Auto) 69.6 % (45.0-75.0) Lymphocytes (%) (Auto) 20.9 % (20.0-45.0) Monocytes (%) (Auto) 6.6 % (1.0-10.0) Eosinophils (%) (Auto) 2.6 % (0.0-3.0) Basophils (%) (Auto) 0.2 % (0.0-2.0) Sodium Level 141 MMOL/L (136-145) Potassium Level 4.5 MMOL/L (3.5-5.1) Chloride Level 108 MMOL/L (98-107) H Carbon Dioxide Level 29 MMOL/L (21-32) Anion Gap 4 mmol/L (5-15) L Blood Urea Nitrogen 23 mg/dL (7-18) H Creatinine 1.3 MG/DL (0.55-1.30) Estimat Glomerular Filtration Rate mL/min (>60) Glucose Level 184 MG/DL (74-106) H Calcium Level 8.6 MG/DL (8.5-10.1) Troponin I 0.084 ng/mL (0.000-0.056) Objective HEENT: Atraumatic and normocephalic. Anicteric. There is bitemporal wasting. Pupils are equal, round, and reactive to light and accommodation. Conjunctival pallor is evident. NECK: JVP less than 5 cm. No carotid bruit. Carotid upstroke is 2+ bilaterally. CVS: Normal S1 and S2. Regular rate and rhythm. No murmurs, gallops, or rubs. PMI is at fourth intercostal space in the midclavicular line. LUNGS: Clear to auscultation bilaterally. ABDOMEN: Soft, nontender, and nondistended. No hepatosplenomegaly. Positive bowel sounds. EXTREMITIES: No evidence of edema, clubbing, or cyanosis. There is left-sided hemiparesis. REBECCA SANCHEZ Aug 25, 2017 20:52
--- NOTE | 2017-08-29 07:49 | Discharge Summary ---
Discharge Summary Hospital Course Date of Admission Aug 21, 2017 at 14:40 Date of Discharge Aug 25, 2017 at 12:50 Admitting Diagnosis dehydration HPI Darryn Eastman is a 87 year old male who was admitted on Aug 21, 2017 at 14: 40 for Dehydration Hospital Course dc summary #[id number] Discharge Medications Continued Medications: Acetaminophen* (Acetaminophen 325MG Tablet*) 325 Mg Tablet 650 MG ORAL Q6H PRN for Prn Headache/Temp > 101, TAB Aspirin* (Aspirin*) 325 Mg Tablet 325 MG ORAL DAILY, TAB Carvedilol* (Carvedilol*) 12.5 Mg Tablet 12.5 MG ORAL BID, TAB Cholecalciferol (Vitamin D3)* (Vitamin D*) 1,000 Unit Tablet 2000 UNITS ORAL DAILY, #30 TAB 0 Refills Clopidogrel Bisulfate* (Plavix*) 75 Mg Tablet 75 MG ORAL DAILY, TAB Cranberry Fruit Concentrate (Cranberry) 450 Mg Tablet 450 MG PO DAILY, TAB Docusate Sodium* (Docusate Sodium*) 100 Mg Capsule 100 MG ORAL THREE TIMES A DAY, CAP Furosemide* (Lasix*) 40 Mg Tablet 40 MG ORAL DAILY, TAB Galantamine Hbr (Galantamine Hydrobromide) 4 Mg/1 Ml Solution 4 MG PO BID Levofloxacin* (Levaquin*) 500 Mg Tablet 500 MG ORAL DAILY for 6 Days, TAB Levothyroxine Sodium* (Levothyroxine Sodium*) 50 Mcg Tablet 50 MCG ORAL DAILY, TAB Take in the morning on an empty stomach, at least 30 minutes before food. Linaclotide (Linzess) 145 Mcg Capsule 145 MCG PO DAILY, CAP Melatonin (Melatonin) 3 Mg Tablet 9 MG ORAL BEDTIME, TAB Memantine Hcl* (Namenda*) 10 Mg Tablet 10 MG ORAL TWICE A DAY, TAB Multivitamin With Minerals (Multivitamins With Minerals*) 1 Each Tablet 1 TAB ORAL DAILY, TAB Rosuvastatin Calcium* (Crestor*) 10 Mg Tablet 5 MG ORAL DAILY, TAB Tramadol Hcl* (Ultram*) 50 Mg Tablet 50 MG ORAL Q12HR PRN for For Pain, #30 TAB 0 Refills Discharge Condition Upon Discharge: stable Discharge Disposition Patient was discharged to SNF/Subacute Facility(03) Discharge Diagnoses: Discharge Instructions Discharge Instructions Special Instructions I have been assigned to complete a D/C Summary on this account. I was not involved in the patient management Wilson (Vanchtein)Maddie COLBY Aug 29, 2017 07:49
--- NOTE | 2017-08-29 20:47 | Discharge Summary 2 SIG ---
DATE OF ADMISSION: 08/21/2017 DATE OF DISCHARGE: 08/25/2017 HISTORY OF PRESENT ILLNESS: 87-year-old male with past medical history of diabetes, hypertension, hypothyroidism, BPH, paroxysmal atrial fibrillation, CVA, was brought from the [facility] for evaluation for abnormal laboratories. The patient by himself was unable to provide any history. Workup in the emergency room revealed stable vital signs, evidence of acute renal failure with BUN - 98, creatinine -2.5, sodium -151, leukocytosis -18.2, slightly elevated troponin -0.16. EKG revealed normal sinus rhythm, first-degree AV block. Urinalysis with evidence of UTI. The patient was admitted with dehydration, acute renal failure, elevated troponin, hypernatremia, UTI and failure to thrive. HOSPITAL COURSE: The patient was admitted. Cardiology, Nephrology, and ID consults were requested. The patient was started on the IV fluids. Serial troponins mildly elevated. Per gas check pad maker, mild elevation in troponin was likely secondary to acute renal failure versus tachycardia. No ischemic changes seen on the EKG. No complaint about the chest pain. Revenue Settlements Administrator recommended to continue with conservative therapy. Echocardiogram revealed ejection fraction of 45%. Blood pressure was stable with current medication regimen. Childcare Attendant closely followed. With IV hydration, acute renal failure resolved along with hypernatremia. Prior to discharge, sodium - 141, BUN -23, creatinine -1.3. IV fluids discontinued. Per tooth inspector, acute renal failure and hypernatremia both were precipitated by dehydration, which resolved with IV hydration. Blood sugar was managed with a sliding scale of insulin. Hemoglobin A1c- 7.9, The patient will need further optimization of anti-glycemic management at the [facility] to get hemoglobin A1c under goal. Aspirin and Plavix were continued as secondary prophylaxis for CVA. The patient was in sinus rhythm. No anticoagulation for paroxysmal atrial fibrillation started. Blood pressure was managed with beta bang, remained stable. Urinalysis was positive for UTI. Urine culture grew Pseudomonas, Staphylococcus aureus, and enterococci. The patient initially was on empiric antibiotic, which subsequently was changed to oral Levaquin for additional day to continue at the [facility] to complete the course of treatment as recommended by ID specialist. Blood culture were negative. Leukocytosis resolved. The patient initially was with the Goins, then Goins was discontinued. The patient was with the condom catheter . TSH was within normal limits. Current dose of Levothyroxine was continued. Lipid panel was within normal limits. Minimally elevated troponin trending down, the last- 0.084. Flomax was continued. The patient was stable for discharge. FINAL DIAGNOSES: 1. Acute renal failure secondary to dehydration, resolved. 2. Dehydration. 3. Hypernatremia, due to dehydration, resolved. 4. Urinary tract infection with Pseudomonas 5. Diabetes mellitus. 6. Cerebrovascular accident with left-sided weakness. 7..Dementia. 8. Benign prostatic hypertrophy. 9. Hypothyroidism. 10. Hypertension. 11. Paroxysmal atrial fibrillation. DISCHARGE MEDICATIONS: See medication reconciliation list. DISCHARGE INSTRUCTIONS: The patient was discharged to assisted facility. Follow up with medical doctor at the facility. Complete course of antibiotic as recommended by ID. Pranav Le M.D. I have been assigned to dictate discharge summary on this account and I was not involved in the patient's management. Maddie Templetonmelissa N.P. DR: REGINE JOB#: [id number] CC: SANTIAGO
--- NOTE | 2017-08-31 11:17 | Diagnostic Imaging Report ---
Indications: DYSPHAGIA Technique: Patient ingested multiple substances under the supervision of speech pathology. Video fluoroscopic recording performed. Total fluoroscopy time dose 3 seconds. Total dose area product 0.57885 mGycm2 Comparison: none Findings: There is marked delay in initiation of deglutition. Early pooling in the vallecula and puriform sinuses is noted. No evidence of aspiration or penetration. Delayed pooling in the vallecula and puriform sinuses as well. Ingestion of barium pur?e is uneventful except for the delay in initiation of deglutition. Impression: Oromotor dysfunction as described Negative for aspiration or penetration
== END 2017-08-25 12:50 | DRG 683 ==
LOC: EDBD 13:23 → EMR 14:10 → 3E 14:40 → EDBEDREQ 15:29 → EDBEDREQSVC 16:17 → EDBEDREQ 16:21 → 2E 16:32 → 3E 16:32 → 2E 16:35 → 4E 08-23 12:19
DX: N17.9 Acute kidney failure, unspecified (principal); E87.0 Hyperosmolality and hypernatremia; F03.90 Unspecified dementia, unspecified severity, without behavioral disturbance, psychotic disturbance, mood disturbance, and anxiety; B96.5 Pseudomonas (aeruginosa) (mallei) (pseudomallei) as the cause of diseases classified elsewhere; I69.354 Hemiplegia and hemiparesis following cerebral infarction affecting left non-dominant side; N39.0 Urinary tract infection, site not specified; E86.0 Dehydration; I48.0 Paroxysmal atrial fibrillation; I10 Essential (primary) hypertension; E11.9 Type 2 diabetes mellitus without complications; R62.7 Adult failure to thrive; I73.9 Peripheral vascular disease, unspecified; R74.8 Abnormal levels of other serum enzymes; N40.0 Benign prostatic hyperplasia without lower urinary tract symptoms; E03.9 Hypothyroidism, unspecified; G89.4 Chronic pain syndrome; Z79.02 Long term (current) use of antithrombotics/antiplatelets
CPT/HCPCS: 36415; 71010; 74230; 80048; 80053; 80061; 81001; 82550; 82607; 82746; 82977; 83036; 83605; 83735; 83880; 84100; 84443; 84484; 84550; 85007; 85025; 85610; 85730; 86140; 87040; 87081; 87086; 87181; 93005; 93306; 93970; 99285; J8499